=== PATIENT | female | born 1955 | race Caucasian/White ===

== ENCOUNTER → 2018-02-10 | Outpatient (CLI) | payer OTHER ==
[~2018-02-10] MED LIST: CARAFATE1 G1; PHENERGAN25 M2; SKELAXIN800 M1; Z.0.CYMBALTA30 MG; Z.0.LAMICTAL100 MG; Z.0.RESTORIL15 MG; Z.0.XANAX0.5 MG; Z.0.ZEGERID 20 MG1 E
--- NOTE | 2018-02-10 19:04 | Diagnostic Imaging Report ---
Solid-phase gastric emptying study Reason for examination: 62 F with RUQ abdominal pain The protocol used for this study is based on the Consensus Recommendations for Gastric Scintigraphy by the [place] [employer] Society and the Society of Nuclear Medicine. Clinical information: The patient is not diabetic. The patient had cholecystectomy in 1981 and stomach svetlana in 1991. Stomach svetlana were removed in 2015. The patient is not on any medications expected to affect gastric motility. The patient has been fasting for at least 6 hours prior to this exam. Radiopharmaceutical: Tc-99m sulfur colloid 1 mCi Report: The radiopharmaceutical was added to 1/2 cup egg whites that were then prepared and served with 2 pieces of white bread toasted, 30 grams of jam and 4 ounces of water. The patient took 85% of the meal orally. Images were obtained of the abdomen in the anterior and posterior projections at 10 minutes post the meal and at 1, 2, 3, and 4 hours. Uptake was determined from the geometric mean of the anterior and posterior counts and the counts were corrected for decay of the radiolabel. The percent gastric retention of the labeled meal at: 1 hour was 54% (normal 30-90%) 2 hours was 45% (normal <60%) 3 hours was 27% (normal <30%) 4 hours was 7% (normal <10%) Impression: Normal gastric emptying pattern. The findings do not support the clinical diagnosis of gastroparesis. Signed by: Dr. Ani Gauthier M.D. on 02/10/2018 7:01 PM
== END ==
LOC: NM 08:23
PROVIDERS: ATTEND Internal Medicine Gastroenterology
DX: R10.13 Epigastric pain (principal); R10.11 Right upper quadrant pain; K21.9 Gastro-esophageal reflux disease without esophagitis
CPT/HCPCS: 78264; A9541

== ENCOUNTER → 2018-11-02 | Outpatient (CLI) | payer BC ==
--- NOTE | 2018-11-02 12:34 | Diagnostic Imaging Report ---
EXAMINATION: CHEST 2 VIEWS INDICATION: Cough COMPARISON: None FINDINGS: LINES/TUBES:None LUNGS:The lungs are well-inflated. No focal consolidation or pulmonary edema. PLEURA:No pleural effusion or pneumothorax. MEDIASTINUM:The cardiomediastinal silhouette appears normal in size and shape. Atherosclerotic calcifications of the thoracic aorta. BONES/SOFT TISSUES:No acute osseous injury. ABDOMEN:No free air under the diaphragm. IMPRESSION: No focal pneumonia or pulmonary edema. Signed by: Clifton Sanchez MD on 11/02/2018 12:31 PM
--- NOTE | 2018-11-02 12:40 | Diagnostic Imaging Report ---
EXAMINATION: SINUSES (PARANASAL)MIN 3VIEWS INDICATION: Congestion COMPARISON: None FINDINGS: Multiple views of the sinuses demonstrate well aerated paranasal sinuses and mastoid air cells without air-fluid levels. No acute osseous injury. Metallic dental fillings noted. Anatomic alignment of the partially visualized cervical spine. Prevertebral soft tissues are normal in thickness. IMPRESSION: Well aerated sinuses. Signed by: Clifton Sanchez MD on 11/02/2018 12:37 PM
== END ==
LOC: RAD 10:15
PROVIDERS: ATTEND Internal Medicine
DX: R05 Cough (principal); R09.89 Other specified symptoms and signs involving the circulatory and respiratory systems
CPT/HCPCS: 70220; 71046

== ENCOUNTER 2019-11-07 15:11 | Emergency (ER) | payer BC ==
[~2019-11-07] VITALS: Ht 172.7 cm; Wt 102.1 kg
--- NOTE | 2019-11-07 15:34 | Emergency Department Note ---
History of Present Illnes History of Present Illness Chief Complaint: General Medicine Complaints History of Present Illness This is a 64 year old female PATIENT IN FROM HOME WITH COMPLAINTS OF RIGHT SIDED LOWER DENTAL PAIN X 3 DAYS, STATES TODAY SHE WOKE UP WITH SWELLING TO THE RIGHT SIDE OF HER FACE. PATIENT ALERT AND ORIENTED, RESP EVEN AND NONLABORED, APPEARS IN NO DISTRESS, RATES PAIN 2/10. Historian: Patient Arrival Mode: Car Database Programmer Analyst Required: No Onset (how long ago): day(s) (3) Location: RIGHT MANDIBULAR SWELLING Quality: SWELLING Radiation: Reports non-radiation Severity: moderate Onset quality: gradual Timing of current episode: constant Progression: worsening Chronicity: new Context: Denies recent illness Relieving factors: none Exacerbating factors: none Associated symptoms: Reports denies other symptoms Treatments prior to arrival: none Past Medical/Family History Physician Review I have reviewed the patient's past medical and family history. Any updates have been documented here. Past Medical History Recent Fever: No Clinical Suspicion of Infectio: Yes New/Unexplained Change in Ment: No Past Medical History: Hypothyroidism, CAD, GERD, Hyperlipedemia Other Medical History: HIGH CHOLESTEROL Past Surgical History: Cholecysctectomy, Hysterectomy, , Bariatric Surgery Other Surgery: GASTRIC BYPASS, PLASTIC SX, X 3, COLON POLYPS FOOT SURGERY Social History Smoking Cessation: Former smoker Counseling Performed: No Alcohol Use: Social Any Illegal Drug Use: No TB Exposure/Symptoms: No Physically hurt or threatened: No Other Last Tetanus: NO Any Pre-Existing Lines (PICC,: No Review of Systems Review of Systems Constitutional: Reports no symptoms EENTM: Reports as per HPI Cardiovascular: Reports no symptoms Respiratory: Reports no symptoms Gastrointestinal: Reports no symptoms Genitourinary: Reports no symptoms Musculoskeletal: Reports no symptoms Integumentary: Reports no symptoms Neurological: Reports no symptoms Psychological: Reports no symptoms Endocrine: Reports no symptoms Hematological/Lymphatic: Reports no symptoms Physical Exam Related Data Allergies: Coded Allergies: aspirin (Verified Adverse Reaction, Unknown, UPSET STOMACH, 05/30/16) Triage Vital Signs Vital Signs Date Time Temp Pulse Resp B/P (MAP) Pulse Ox O2 Delivery O2 Flow Rate FiO2 11/07/19 15:14 96.6 87 20 158/94 95 Room Air Vital signs reviewed: Yes Physical Exam CONSTITUTIONAL Constitutional: Present well-developed, Present well-nourished HENT HENT: Present normocephalic, Present atraumatic, Present oropharynx normal, Present other (TOOTH #29 VERY TENDER TO TAP, NO SWELLING OF GUMS, POSITIVE SWELLING OF RIGHT MANDIBLE BUT NOT UNDER ANGLE OF JAW) HENT L/R: Present left TM normal, Present right TM normal, Present left ext ear normal, Present right ext ear normal EYES Eyes: Reports PERRL, Reports conjunctivae normal NECK Neck: Present ROM normal PULMONARY Pulmonary: Present effort normal, Present breath sounds normal CARDIOVASCULAR Cardiovascular: Present regular rhythm, Present heart sounds normal, Present capillary refill normal, Present normal rate GASTROINTESTINAL Abdominal: Present soft, Present nontender, Present bowel sounds normal GENITOURINARY Genitourinary: Present exam deferred SKIN Skin: Present warm, Present dry MUSCULOSKELETAL Musculoskeletal: Present ROM normal NEUROLOGICAL Neurological: Present alert, Present oriented x 3, Present no gross motor or sensory deficits; Absent cranial nerve deficit PSYCHOLOGICAL Psychological: Present mood/affect normal, Present judgement normal Assessment & Plan Medical Decision Making MDM DENTAL INFECTION WITH RIGHT MANDIBULAR SWELLING - HOME WITH PO ABX'S AND PAIN CONTROL Reassessment Reassessment DC HOME WITH CLINDA 300 Q6H X 10D, TYL #3 (#15), OTC IBUPROFEN/TYLENOL DIRECTED Assessment & Plan Final Impression: (1) Dental infection (2) Mandibular swelling Depart Disposition: HOME, SELF-CARE Last Vital Signs Date Time Temp Pulse Resp B/P (MAP) Pulse Ox O2 Delivery O2 Flow Rate FiO2 11/07/19 15:14 96.6 87 20 158/94 95 Room Air Home Meds Reported Medications Duloxetine Hcl (Cymbalta) 30 Mg Capsule.dr, QD 05/11/11 Promethazine Hcl (Phenergan) 25 Mg Supp.rect, PRN 05/11/11 Lamotrigine (Lamictal) 100 Mg Tablet, BID 05/11/11 Alprazolam (Xanax) 0.5 Mg Tablet, BID PRN 05/11/11 Sucralfate (Carafate) 1 Gm Tablet, QD 05/11/11 Omeprazole/Sodium Bicarbonate (Zegerid 20 Mg Capsule) 1 Each Capsule, QD 05/11/11 Metaxalone (SKELAXIN) 800 Mg Tablet, TID 05/11/11 Temazepam (Restoril) 15 Mg Capsule, HS 05/11/11 GOLDIE TOVAR MD Nov 07, 2019 15:34
--- OUTSIDE RECORDS SUMMARY | 2019-11-07 15:38 | XMS REPORT | Continuity of Care Document ---
Author Author [facility] t Organization [facility] Address [address] [place] [address] Phone Unavailable Care Team Providers Care Regional Hr Manager Name Role Phone Joan Kramer MD PCP Joan Kramer MD Attphys VINICIO MCKEON Attphys Unavailable SPENSER YOUNG Attphys Unavailable Payers Payer Name Policy Type Policy Number Effective Date Expiration Date S john BCBSBCBS CHOICE PPO/[employer] EMPL PPOxxxxxxxxxxxx2018-Pre sentPPO xxxxxxxxxxxx 2018 00:00:00 Dionte Bansal Problems This patient has no known problems. Allergies, Adverse Reactions, Alerts Allergy Name Allergy Type Status Severity Reaction(s) Onset Date Inacti ve Date Treating Clinician Comments Source No Known Allergies DA Active U 2011-03-07 00:00:00 [facility] Social History Social Habit Start Date Stop Date Quantity Comments Source Sex Assigned At [facility] [employer] Medications This patient has no known medications. Procedures Procedure Date / Time Performed Performing Clinician Sourc e CT CHEST WO CONTRAST 2019 12:45:27 Beni Kramer Plan of Care Planned Activity Planned Date Details Comments Source Future Scheduled Test 2019-11-25 00:00:00 INFLUENZA VACCINE [code = INFLUENZA VACCINE] Dionte Bansal Future Scheduled Test 2005-06-27 00:00:00 BREAST CANCER SCRE ENING [code = BREAST CANCER SCREENING] Dionte Bansal Future Scheduled Test 2005-06-27 00:00:00 COLONOSCOPY SCREEN ING [code = COLONOSCOPY SCREENING] Dionte Bansal Future Scheduled Test 2005-06-27 00:00:00 SHINGLES VACCINES (#1) [code = SHINGLES VACCINES (#1)] Dionte Bansal Future Scheduled Test 1976-06-27 00:00:00 Screening for hugo gnant neoplasm of cervix (procedure) [code = 414489026] Dionte Agrawal t Encounters Start Date/Time End Date/Time Encounter Type Admission Type Attendi [facility] Facility Care Department Encounter ID Source 2019 00:00:00 2019 00:00:00 Outpatient [facility] [id number] Dionte Bansal Results Test Description Test Time Test Comments Results Result Comments Source CT Chest Wo Contrast 2019 13:12:59 Hm Inte rface, Radiology Results 2019 1:16 PM CDTEXAMINATION: CT CHEST WO CONTRASTCLINICAL HISTORY: J43.2 Centrilobular emphysema, Centrilobular emphysemaTECHNIQUE: Axial images of the chest were obtained without intravenous contrast. The lack of intravenous contrast reduces the sensitivity of the exam and evaluating vasculature. CT imaging was performed with iterative reconstruction technique and/or automated exposure control to reduce radiation dose.COMPARISON: NoneFINDINGS:Lungs and airways: Mild centrilobular emphysema is present. There is very subtle interlobular septal thickening and bronchial wall thickening as well. Ill-defined nodularity is present in the posterior basilar segment of the right lower lobe measuring approximately 1 cm. Pleura: No pleural effusion or pneumothorax.Mediastinum and lymph nodes: There are a few prominent but subcentimeter mediastinal lymph nodes which are favored to be reactive. The thyroid gland is diminutive, suggestive of hypothyroidism or prior thyroiditis.Cardiovascular: Moderate coronary artery and additional scattered vascular calcifications are present. The left ventricle is upper limits of normal in size but suboptimally assessed on non-ECG synchronized noncontrast CT.Upper abdomen: Calcified splenic granulomas are present. Status post gastric restrictive surgery.Musculoskeletal: There is an age-indeterminate, favor chronic, superior endplate deformity of T11. Spondylosis involves the visualized spine.IMPRESSION:1.Mild centrilobular emphysema.2.Very subtle interlobular septal and bronchial wall thickening could represent trace pulmonary edema.3.Ill-defined nodularity in the posterior basilar segment of the right lower lobe is favored represent atelectasis. A follow-up chest CT could be performed in 3-6 months to ensure resolution.4.Moderate coronary artery calcifications are present, and the left ventricle appears upper limits of normal in size but is suboptimally assessed on non-ECG synchronized, noncontrast enhanced CT.[id number] [facility] SINUSES (PARANASAL)MIN 3VIEWS 2018-11-02 12:35:00 [facility] [address] [address] Patient Name: GAURAV RAYMOND MR #: [id number] : 1955 Age/Sex: 63/F Req #: [id number] Adm Physician: Ordered by: VINICIO MCKEON MD Report #: [id number] Location: [facility] Room/Bed: Procedure: [id number] DX/SINUSES (PARANASAL)MIN 3VIEWS Exam Date: 11/02/18 Exam Time: 1140 REPORT STATUS: Signed EXAMINATION: SINUSES (PARANASAL)MIN 3VIEWS INDICATION: Congestion COMPARISON: None FINDINGS: Multiple views of the sinuses demonstrate well aerated paranasal sinuses and mastoid air cells without air-fluid levels. No acute osseous injury. Metallic dental fillings noted. Anatomic alignment of the partially visualized cervical spine. Prevertebral soft tissues are normal in thickness. IMPRESSION: Well aerated sinuses. Signed by: Yoan Gray MD on 11/02/2018 12:37 PM Dictated By: YOAN GRAY MD 1237 Transcribed By: STEPHANI on 11/02/18 1237 COPY TO: VINICIO MCKEON MD CHEST 2 VIEWS 2018-11-02 12:30:[address] [address] Patient Name: GAURAV RAYMOND MR #: [id number] : 1955 Age/Sex: 63/F Req #: [id number] Adm Physician: Ordered by: VINICIO MCKEON MD Report #: [id number] Location: [facility] Room/Bed: Procedure: [id number] DX/CHEST 2 VIEWS Exam Date: 11/02/18 Exam Time: 1140 REPORT STATUS: Signed EXAMINATION: CHEST 2 VIEWS INDICATION: Cough COMPARISON: None FINDINGS: LINES/TUBES:None LUNGS:The lungs are well-inflated. No focal consolidation or pulmonary edema. PLEURA:No pleural effusion or pneumothorax. MEDIASTINUM:The cardiomediastinal silhouette appears normal in size and shape. Atherosclerotic calcifications of the thoracic aorta. BONES/SOFT TISSUES:No acute osseous injury. ABDOMEN:No free air under the diaphragm. IMPRESSION: No focal pneumonia or pulmonary edema. Signed by: Yoan Gray MD on 11/02/2018 12:31 PM Dictated By: YOAN GRAY MD 1231 Transcribed By: STEPHANI on 11/02/18 1231 COPY TO: VINICIO MCKEON MD GASTRIC EMPTYING 2018-02-10 18:57:00 [address] [place] [address] Patient Name: GAURAV RAYMOND MR #: [id number] : 1955 Age/Sex: 62/F Req #: [id number] [facility] Physician: Ordered by: SPENSER YOUNG MD Report #: [id number] Location: MD Room/Bed: Procedure: [id number] NM/GASTRIC EMPTYING Exam Date: Exam Time: REPORT STATUS: Signed Solid-phase gastric emptying study Reason for examination: 62 F with RUQ abdominal pain The protocol used for this study is based on the Consensus Recommendations for Gastric Scintigraphy by the [place] [employer]ility Society and the Society of Nuclear Medicine. Clinical information: The patient is not diabetic. The patient had cholecystectomy in 1981 and stomach svetlana in 1991. Stomach svetlana were removed in 2015. The patient is not on any medications expected to affect gastric motility. The patient has been fasting for at least 6 hours prior to this exam. Radiopharmaceutical: Tc-99m sulfur colloid 1 mCi Report: The radiopharmaceutical was added to 1/2 cup egg whites that were then prepared and served with 2 pieces of white bread toasted, 30 grams of jam and 4 ounces of water. The patient took 85% of the meal orally. Images were obtained of the abdomen in the anterior and posterior projections at 10 minutes post the meal and at 1, 2, 3, and 4 hours. Uptake was determined from the geometr ic mean of the anterior and posterior counts and the counts were corrected for decay of the radiolabel. The percent gastric retention of the labeled meal at: 1 hour was 54% (normal 30-90%) 2 hours was 45% (normal <60%) 3 hours was 27% (normal <30%) 4 hours was 7% (normal <10%) Impression: Normal gastric emptying pattern. The findings do not support the clinical diagnosis of gastroparesis. Signed by: Dr. Jewell Gauthier M.D. on 02/10/2018 7:01 PM Dictated By: JEWELL GAUTHIER MD 00 Transcribed By: STEPHANI on 02/10/181900 COPY TO: SPENSER YOUNG MD
--- OUTSIDE RECORDS SUMMARY | 2019-11-07 15:38 | XMS REPORT | Clinical Summary ---
Author Author [facility] Address Unknown Phone Unavailable Care Team Providers Care Banquet Supervisor Name Role Phone Beni Kramer MD PCP Allergies Not on File Medications Not on file Active Problems Not on file Encounters Care Team Description Date Type Specialty Beni Kramer MD Centrilobular emphysema (HCC) 2019 Hospital Radiology Encounter 2019 Travel 06/21/2019 Travel Beni Kramer MD Centrilobular emphysema (HCC) (Primary D x) 06/21/2019 Transcribe Access Orders after 11/06/2018 Social History Date Tobacco Use Types Packs/Day Years Used Never Assessed Sex Assigned at Date Recorded Not on file Industry Job Start Date Occupation Not on file Not on file Not on file Travel End Travel History Travel Start No recent travel history available. Last Filed Vital Signs Not on file Plan of Treatment Health Maintenance Due Date Last Done Comments CERVICAL CANCER SCREENING 06/27/1976 BREAST CANCER SCREENING 06/27/2005 COLONOSCOPY SCREENING 06/27/2005 SHINGLES VACCINES (#1) 06/27/2005 INFLUENZA VACCINE 11/25/2019 Procedures Comments Procedure Name Priority Date/Time Associated Diag nosis CT CHEST WO CONTRAST Routine 2019 Centrilob ular emphysema 12:45 PM CDT (HCC) after 11/06/2018 Results * CT Chest Wo Contrast (2019 12:45 PM CDT) Specimen Narrative Performed At EXAMINATION: CT CHEST WO CONTRAST [facility] CLINICAL HISTORY: J43.2 Centrilobular e mphysema, Centrilobular emphysema TECHNIQUE: Axial images of the chest were obtained without intravenous contrast. The lack of intravenous contr ast reduces the sensitivity of the exam and evaluating vasculature. CT imaging was performed with iterative reconstruction technique and/or automated exposure control to reduce ra diation dose. COMPARISON: None FINDINGS: Lungs and airways: Mild centrilobular e mphysema is present. There is very subtle interlobular septal thickening and bron chial wall thickening as well. Ill-defined nodularity is present in th e posterior basilar segment of the right lower lobe measuring approximately 1 cm. Pleura: No pleural effusion or pneumoth orax. Mediastinum and lymph nodes: There are a few prominent but subcentimeter mediastinal lymph nodes which are favor ed to be reactive. The thyroid gland is diminutive, suggestive of hypothyroidis m or prior thyroiditis. Cardiovascular: Moderate coronary arter y and additional scattered vascular calcifications are present. The left ve ntricle is upper limits of normal in size but suboptimally assessed on non-ECG sy nchronized noncontrast CT. Upper abdomen: Calcified splenic granul omas are present. Status post gastric restrictive surgery. Musculoskeletal: There is an age-indete rminate, favor chronic, superior endplate deformity of T11. Spondylosis involves the visualized spine. IMPRESSION: 1.Mild centrilobular emphysema. 2.Very subtle interlobular septal and b ronchial wall thickening could represent trace pulmonary edema. 3.Ill-defined nodularity in the posteri or basilar segment of the right lower lobe is favored represent atelectasis. A follow-up chest CT could be performed in 3-6 months to ensure resolution. 4.Moderate coronary artery calcificatio ns are present, and the left ventricle appears upper limits of normal in size but is suboptimally assessed on non-ECG synchronized, noncontrast enhanced CT. [id number] Procedure Note Hm Interface, Radiology Results Incoming - 2019 1:16 PM CDT EXAMINATION: CT CHEST WO CONTRAST CLINICAL HISTORY: J43.2 Centrilobular emphysema, Centrilobular emphysema TECHNIQUE: Axial images of the chest were obtained without intravenous contrast. The lack of intravenous contrast reduces the sensitivity of the exam and evaluating vasculature. CT imaging was performed with iterative reconstruction technique and/or automated exposure control to reduce radiation dose. COMPARISON: None FINDINGS: Lungs and airways: Mild centrilobular emphysema is present. There is very subtle interlobular septal thickening and bronchial wall thickening as well. Ill- defined nodularity is present in the posterior basilar segment of the right lower lobe measuring approximately 1 cm. Pleura: No pleural effusion or pneumothorax. Mediastinum and lymph nodes: There are a few prominent but subcentimeter mediastinal lymph nodes which are favored to be reactive. The thyroid gland is diminutive, suggestive of hypothyroidism or prior thyroiditis. Cardiovascular: Moderate coronary artery and additional scattered vascular calcifications are present. The left ventricle is upper limits of normal in size but suboptimally assessed on non-ECG synchronized noncontrast CT. Upper abdomen: Calcified splenic granulomas are present. Status post gastric restrictive surgery. Musculoskeletal: There is an age-indeterminate, favor chronic, superior endplate deformity of T11. Spondylosis involves the visualized spine. IMPRESSION: 1.Mild centrilobular emphysema. 2.Very subtle interlobular septal and br onchial wall thickening could represent trace pulmonary edema. 3.Ill-defined nodularity in the posterio r basilar segment of the right lower lobe is favored represent atelectasis. A follow-up chest CT could be performed in 3-6 months to ensure resolution. 4.Moderate coronary artery calcification s are present, and the left ventricle appears upper limits of normal in size but is suboptimally assessed on non-ECG synchronized, noncontrast enhanced CT. [id number] Performing Organization Address [facility]/State[facility] one Number [facility] [address] [place] [address] after 11/06/2018 Insurance Type Payer Benefit Subscriber ID Effective Phone Address Plan / Dates Group PPO BCBS BCBS xxxxxxxxxxxx [id number] CHOICE resent PPO/ILIANA TOTH PPO Advance Directives For more information, please contact: [phone] Patient Restoration Officer Explanation Type Date Recorded Advance Directives, Living Will and Medical Power of Lining Presser
== END 2019-11-07 15:28 | disposition home or self-care (01) ==
LOC: ER 15:19
DX: K08.89 Other specified disorders of teeth and supporting structures (principal); K04.7 Periapical abscess without sinus; M27.2 Inflammatory conditions of jaws; E78.5 Hyperlipidemia, unspecified; I25.10 Atherosclerotic heart disease of native coronary artery without angina pectoris; E03.9 Hypothyroidism, unspecified; K21.9 Gastro-esophageal reflux disease without esophagitis; Z98.84 Bariatric surgery status
CPT/HCPCS: 99283

== ENCOUNTER 2019-12-17 14:10 | Emergency (ER) | payer BC ==
[~2019-12-17] VITALS: Ht 172.7 cm; Wt 102.1 kg
[2019-12-17 14:42] LABS: BASOPHILS # (AUTO) 0.1 (0.0-0.1); BASOPHILS % 0.8 % (0.0-1.0); EOSINOPHILS # (AUTO) 0.2 (0.0-0.4); EOSINOPHILS % 2.2 % (0.0-6.0); HEMATOCRIT 44.1 % (34.2-44.1); LYMPHOCYTES # (AUTO) 1.9 (1.0-3.2); LYMPHOCYTES % 23.3 % (18.0-39.1); MEAN CORPUSCULAR HEMOGLOBIN 29.3 pg (28-32); MEAN CORPUSCULAR HGB CONC 31.7 g/dL (31-35); MEAN CORPUSCULAR VOLUME 92.3 fL (81-99); MONOCYTES # (AUTO) 0.8 (0.2-0.8); MONOCYTES % 9.3 % (4.4-11.3); NEUTROPHILS # (AUTO) 5.3 (2.1-6.9); PLATELET COUNT 330 x10e3/uL (140-360); RED BLOOD COUNT 4.78 x10e6/uL (3.6-5.1); RED CELL DISTRIBUTION WIDTH 13.4 % (11.7-14.4)
[2019-12-17 15:02] LABS: ALANINE AMINOTRANSFERASE 24 IU/L (0-55); ALBUMIN/GLOBULIN RATIO 1.1 (0.8-2.0); ALKALINE PHOSPHATASE 65 IU/L (40-150); ANION GAP 16.4 mmol/L (8-16); BLOOD UREA NITROGEN 11 mg/dL (7-26); BUN/CREATININE RATIO 13 (6-25); CALCIUM 9.5 mg/dL (8.4-10.2); CARBON DIOXIDE 25 mmol/L (22-29); CHLORIDE 104 mmol/L (98-107); CREATININE, SERUM 0.83 mg/dL (0.57-1.11); EST GLOMERULAR FILTRATION RATE > 60 ML/MIN (60-); GLUCOSE 91 mg/dL (74-118); POTASSIUM 4.4 mmol/L (3.5-5.1); SODIUM 141 mmol/L (136-145)
== END 2019-12-17 17:11 | disposition home or self-care (01) ==
LOC: ER 15:00
DX: R61 Generalized hyperhidrosis (principal); E16.2 Hypoglycemia, unspecified; E78.5 Hyperlipidemia, unspecified; K21.9 Gastro-esophageal reflux disease without esophagitis; I25.10 Atherosclerotic heart disease of native coronary artery without angina pectoris; F41.9 Anxiety disorder, unspecified; Z98.84 Bariatric surgery status
CPT/HCPCS: 36415; 80053; 85025; 99283

== ENCOUNTER 2020-09-13 17:17 | Emergency (ER) | payer MEDICARE, OTHER ==
[~2020-09-13] VITALS: Ht 172.7 cm; Wt 102.1 kg
[2020-09-13] MEDS ORDERED: HYDROCODONE/APAP 10MG-325MG TAB PO ONE (18:00)
[2020-09-13 20:12] VITALS: BP 148/83
== END 2020-09-13 20:19 | disposition home or self-care (01) ==
LOC: ER 18:07
DX: M25.562 Pain in left knee (principal); M25.561 Pain in right knee; M25.462 Effusion, left knee; M25.461 Effusion, right knee; S93.402A Sprain of unspecified ligament of left ankle, initial encounter; W01.0XXA Fall on same level from slipping, tripping and stumbling without subsequent striking against object, initial encounter; Y93.01 Activity, walking, marching and hiking; Y92.008 Other place in unspecified non-institutional (private) residence as the place of occurrence of the external cause; E78.5 Hyperlipidemia, unspecified; I25.10 Atherosclerotic heart disease of native coronary artery without angina pectoris; E03.9 Hypothyroidism, unspecified; F41.9 Anxiety disorder, unspecified; Z98.84 Bariatric surgery status
CPT/HCPCS: 99283

== ENCOUNTER 2020-11-15 14:27 | Inpatient (IN) | payer MEDICARE, OTHER ==
[~2020-11-15] VITALS: Ht 172.7 cm; Wt 117.5 kg
[2020-11-15] MEDS ORDERED: CEFTRIAXONE 1 GM VIAL IM ONE (14:45)
[2020-11-15] MEDS ORDERED: DEXAMETHASONE 10MG/ML PF INJ IV ONE (14:45)
[2020-11-15 14:58] LABS: BASOPHILS % 0.2 % (0.0-1.0); HEMATOCRIT 44.7 % (34.2-44.1); HEMOGLOBIN 14.2 g/dL (12.0-16.0); LYMPHOCYTES # (AUTO) 0.9 (1.0-3.2); MEAN CORPUSCULAR HEMOGLOBIN 27.8 pg (28-32); MEAN CORPUSCULAR HGB CONC 31.8 g/dL (31-35); MEAN CORPUSCULAR VOLUME 87.6 fL (81-99); MONOCYTES # (AUTO) 0.7 (0.2-0.8); MONOCYTES % 12.2 % (4.4-11.3); NEUTROPHILS # (AUTO) 3.8 (2.1-6.9); PLATELET COUNT 257 x10e3/uL (140-360); RED CELL DISTRIBUTION WIDTH 13.5 % (11.7-14.4)
[2020-11-15 15:09] LABS: ALBUMIN 3.5 g/dL (3.5-5.0); ALBUMIN/GLOBULIN RATIO 0.8 (0.8-2.0); ANION GAP 18.9 mmol/L (8-16); CALCIUM 8.8 mg/dL (8.4-10.2); CREATININE, SERUM 0.87 mg/dL (0.57-1.11)
[2020-11-15 15:12] LABS: POTASSIUM 2.9 mmol/L (3.5-5.1)
[2020-11-15] MEDS ORDERED: DEXAMETHASONE SOD PHOS 10 MG/1 ML VIAL IV ONE (15:30)
[2020-11-15] MEDS ORDERED: POTASSIUM CHLORIDE 10MEQ EA PO ONE (15:30)
[2020-11-15 15:33] LABS: CREATINE KINASE MB 0.9 ng/mL (0-5.0)
[2020-11-15] MEDS ORDERED: CASIRIVIMAB/IMDEVIMAB 10 ML in SODIUM CHLORIDE 0.9% 100 ML IV ONE (17:30)
[2020-11-15 20:41] LABS: INR 0.88; PROTHROMBIN TIME 12.1 seconds (11.9-14.5)
[2020-11-15 20:42] LABS: PARTIAL THROMBOPLASTIN TIME 29.2 seconds (23.8-35.5)
[2020-11-15] MEDS: ENOXAPARIN 30 MG/0.3 ML SYR SC SCH (21:02)
[2020-11-15 23:22] VITALS: BP 111/50
[2020-11-15 23:30] VITALS: BP 111/50
[2020-11-15 23:59] VITALS: BP 111/50
[2020-11-16] VITALS (25 sets, daily range): BP systolic 91–144; BP diastolic 45–84
[2020-11-16 05:24] LABS: HEMOGLOBIN 12.9 g/dL (12.0-16.0); LYMPHOCYTES # (AUTO) 0.4 (1.0-3.2); LYMPHOCYTES % 12.4 % (18.0-39.1); MEAN CORPUSCULAR HEMOGLOBIN 27.6 pg (28-32); MEAN CORPUSCULAR HGB CONC 33.1 g/dL (31-35); MEAN CORPUSCULAR VOLUME 83.5 fL (81-99); MONOCYTES # (AUTO) 0.4 (0.2-0.8); MONOCYTES % 10.9 % (4.4-11.3); NEUTROPHILS # (AUTO) 2.5 (2.1-6.9); NEUTROPHILS % 76.1 % (38.7-80.0); PLATELET COUNT 251 x10e3/uL (140-360); RED BLOOD COUNT 4.67 x10e6/uL (3.6-5.1); RED CELL DISTRIBUTION WIDTH 13.3 % (11.7-14.4)
[2020-11-16 06:10] LABS: ALBUMIN 2.9 g/dL (3.5-5.0); ALBUMIN/GLOBULIN RATIO 0.7 (0.8-2.0); ANION GAP 14.6 mmol/L (8-16); CALCIUM 8.5 mg/dL (8.4-10.2); CREATININE, SERUM 0.69 mg/dL (0.57-1.11); POTASSIUM 3.6 mmol/L (3.5-5.1)
[2020-11-16 06:17] LABS: CREATINE KINASE MB 0.9 ng/mL (0-5.0)
[2020-11-16] MEDS: ENOXAPARIN 30 MG/0.3 ML SYR SC SCH ×2 (08:21→16:12)
[2020-11-16] MEDS: ASCORBIC ACID 500 MG TAB PO SCH ×2 (08:21→16:12)
[2020-11-16] MEDS: DEXAMETHASONE SOD PHOS 10 MG/1 ML VIAL IV SCH (08:21)
[2020-11-16] MEDS: ZINC SULFATE 50 MG CAP PO SCH (08:21)
[2020-11-16] MEDS ORDERED: HYDRALAZINE HCL 20 MG/ML VIAL IV PRN (08:45)
[2020-11-16] MEDS ORDERED: DIPHENHYDRAMINE HCL 25 MG CAP PO PRN (08:45)
[2020-11-16] MEDS ORDERED: POTASSIUM CHLORIDE 20 MEQ TAB CR PO PRN (08:45)
[2020-11-16] MEDS ORDERED: LIDOCAINE 4% PATCH TP PRN (08:45)
[2020-11-16] MEDS ORDERED: DOCUSATE SODIUM 100 MG CAP PO PRN (08:45)
[2020-11-16] MEDS ORDERED: BENZONATATE 100 MG CAP PO PRN (08:45)
[2020-11-16] MEDS ORDERED: CHLORASEPTIC SPRAY 177 ML BTL MM PRN (08:45)
[2020-11-16] MEDS ORDERED: ALBUTEROL/IPRATROPIUM 3 ML NEB NEB PRN (08:45)
[2020-11-16] MEDS ORDERED: ACETAMINOPHEN 325 MG TAB PO PRN (08:45)
[2020-11-16] MEDS ORDERED: SIMETHICONE 80 MG CHEW PO PRN (08:45)
[2020-11-16] MEDS ORDERED: DEXTROSE 50% SYRINGE 50 ML IV PRN (08:45)
[2020-11-16] MEDS ORDERED: REMDESIVIR 200MG 200 MG IV SCH (09:00)
[2020-11-16] MEDS ORDERED: METAXALONE 800 MG TAB PO SCH (09:00)
[2020-11-16] MEDS ORDERED: LAMOTRIGINE 100 MG TAB PO SCH (09:00)
[2020-11-16] MEDS: DULOXETINE HCL 30 MG DELAYED RELEASE PO SCH (09:46)
[2020-11-16] MEDS: SUCRALFATE 1 GM TAB PO SCH (09:46)
[2020-11-16] MEDS ORDERED: SODIUM CHLORIDE 0.9% 50ML 50 ML ONE (11:10)
[2020-11-16] MEDS ORDERED: IOPAMIDOL 370 MG/ML 200 ML INFUS..BTL INJ ONE (11:10)
[2020-11-16] MEDS ORDERED: METFORMIN HCL500 M2 PO (11:47)
[2020-11-16] MEDS ORDERED: CRESTOR10 MG PO (11:47)
[2020-11-16] MEDS ORDERED: EFFIENT10 MG PO (11:47)
[2020-11-16] MEDS ORDERED: VENLAFAXINE HCL75 M2 PO (11:47)
[2020-11-16] MEDS ORDERED: LEVOTHYROXINE75 MCG PO (11:47)
[2020-11-16] MEDS ORDERED: QUETIAPINE FUMA25 MG PO (11:47)
[2020-11-16] MEDS ORDERED: METAXALONE 800 MG TAB PO PRN (12:00)
[2020-11-16] MEDS: BARICITINIB 2 MG TABLET PO SCH (13:03)
[2020-11-16] MEDS: QUETIAPINE FUMARATE 25 MG TAB PO SCH (20:12)
[2020-11-16] MEDS: ONDANSETRON HCL INJ 2MG/ML 2ML 2 MG/ML VIAL IV PRN (20:13)
[2020-11-16] MEDS ORDERED: MELATONIN 5 MG TABLET PO PRN (21:00)
[2020-11-17] VITALS (25 sets, daily range): BP systolic 72–142; BP diastolic 40–99
[2020-11-17] MEDS: LEVOTHYROXINE SODIUM 75 MCG TAB PO SCH (06:21)
[2020-11-17 06:38] LABS: ALBUMIN 2.8 g/dL (3.5-5.0); ALBUMIN/GLOBULIN RATIO 0.7 (0.8-2.0); CALCIUM 8.2 mg/dL (8.4-10.2); CREATININE, SERUM 0.67 mg/dL (0.57-1.11)
[2020-11-17 06:55] LABS: BASOPHILS % 0.2 % (0.0-1.0); HEMATOCRIT 39.5 % (34.2-44.1); HEMOGLOBIN 12.5 g/dL (12.0-16.0); LYMPHOCYTES # (AUTO) 0.8 (1.0-3.2); LYMPHOCYTES % 15.8 % (18.0-39.1); MEAN CORPUSCULAR HEMOGLOBIN 27.7 pg (28-32); MEAN CORPUSCULAR HGB CONC 31.6 g/dL (31-35); MEAN CORPUSCULAR VOLUME 87.4 fL (81-99); MONOCYTES # (AUTO) 0.5 (0.2-0.8); MONOCYTES % 9.2 % (4.4-11.3); NEUTROPHILS # (AUTO) 3.9 (2.1-6.9); NEUTROPHILS % 74.2 % (38.7-80.0); PLATELET COUNT 305 x10e3/uL (140-360); RED BLOOD COUNT 4.52 x10e6/uL (3.6-5.1); RED CELL DISTRIBUTION WIDTH 13.6 % (11.7-14.4)
[2020-11-17] MEDS ORDERED: SODIUM CHLORIDE 0.9% 100 ML ONE (07:59)
[2020-11-17] MEDS: PANTOPRAZOLE SOD 40 MG TABEC PO SCH (08:01)
[2020-11-17] MEDS: VENLAFAXINE HCL 75 MG CAPCR PO SCH (08:01)
[2020-11-17] MEDS: ZINC SULFATE 50 MG CAP PO SCH (08:01)
[2020-11-17] MEDS: DEXAMETHASONE SOD PHOS 10 MG/1 ML VIAL IV SCH (08:01)
[2020-11-17] MEDS: SUCRALFATE 1 GM TAB PO SCH (08:01)
[2020-11-17] MEDS: BARICITINIB 2 MG TABLET PO SCH (08:01)
[2020-11-17] MEDS: PRASUGREL 10 MG TAB PO SCH (08:01)
[2020-11-17] MEDS: ASCORBIC ACID 500 MG TAB PO SCH ×2 (08:01→16:46)
[2020-11-17] MEDS: DULOXETINE HCL 30 MG DELAYED RELEASE PO SCH (08:01)
[2020-11-17] MEDS: REMDESIVIR 100MG 100 MG IV SCH (08:01)
[2020-11-17] MEDS: ENOXAPARIN 30 MG/0.3 ML SYR SC SCH ×2 (08:02→16:46)
[2020-11-17] MEDS: ALPRAZOLAM 0.5 MG TAB PO PRN (10:20)
[2020-11-17] MEDS: ONDANSETRON HCL INJ 2MG/ML 2ML 2 MG/ML VIAL IV PRN (19:51)
[2020-11-17] MEDS: DEXMEDETOMIDINE 400MCG/NS100ML 100 ML IV PRN (20:34)
[2020-11-17] MEDS: QUETIAPINE FUMARATE 25 MG TAB PO SCH (21:23)
[2020-11-17] MEDS: SIMVASTATIN 20 MG TAB PO SCH (21:23)
[2020-11-18] VITALS (24 sets, daily range): BP systolic 86–133; BP diastolic 38–84
[2020-11-18 05:29] LABS: HEMATOCRIT 38.9 % (34.2-44.1); HEMOGLOBIN 12.7 g/dL (12.0-16.0); LYMPHOCYTES # (AUTO) 0.7 (1.0-3.2); LYMPHOCYTES % 11.3 % (18.0-39.1); MEAN CORPUSCULAR HEMOGLOBIN 28.2 pg (28-32); MEAN CORPUSCULAR HGB CONC 32.6 g/dL (31-35); MEAN CORPUSCULAR VOLUME 86.3 fL (81-99); MONOCYTES # (AUTO) 0.3 (0.2-0.8); MONOCYTES % 5.5 % (4.4-11.3); NEUTROPHILS # (AUTO) 4.8 (2.1-6.9); NEUTROPHILS % 82.5 % (38.7-80.0); PLATELET COUNT 312 x10e3/uL (140-360); RED BLOOD COUNT 4.51 x10e6/uL (3.6-5.1); RED CELL DISTRIBUTION WIDTH 13.4 % (11.7-14.4)
[2020-11-18 05:56] LABS: ANION GAP 13.2 mmol/L (8-16); CALCIUM 8.3 mg/dL (8.4-10.2); CREATININE, SERUM 0.65 mg/dL (0.57-1.11); POTASSIUM 3.2 mmol/L (3.5-5.1)
[2020-11-18] MEDS: LEVOTHYROXINE SODIUM 75 MCG TAB PO SCH (06:28)
[2020-11-18] MEDS: REMDESIVIR 100MG 100 MG IV SCH (08:36)
[2020-11-18] MEDS: SUCRALFATE 1 GM TAB PO SCH (08:36)
[2020-11-18] MEDS: DEXAMETHASONE SOD PHOS 10 MG/1 ML VIAL IV SCH (08:36)
[2020-11-18] MEDS: PANTOPRAZOLE SOD 40 MG TABEC PO SCH (08:36)
[2020-11-18] MEDS: BARICITINIB 2 MG TABLET PO SCH (08:37)
[2020-11-18] MEDS: ZINC SULFATE 50 MG CAP PO SCH (08:37)
[2020-11-18] MEDS: ASCORBIC ACID 500 MG TAB PO SCH ×2 (08:37→17:37)
[2020-11-18] MEDS: VENLAFAXINE HCL 75 MG CAPCR PO SCH (08:37)
[2020-11-18] MEDS: PRASUGREL 10 MG TAB PO SCH (08:37)
[2020-11-18] MEDS: ENOXAPARIN 30 MG/0.3 ML SYR SC SCH ×2 (08:37→17:43)
[2020-11-18] MEDS: ONDANSETRON HCL INJ 2MG/ML 2ML 2 MG/ML VIAL IV PRN (10:53)
[2020-11-18] MEDS: DEXMEDETOMIDINE 400MCG/NS100ML 100 ML IV PRN ×2 (10:53→21:19)
[2020-11-18] MEDS: SIMVASTATIN 20 MG TAB PO SCH (20:44)
[2020-11-18] MEDS: QUETIAPINE FUMARATE 25 MG TAB PO SCH (20:44)
[2020-11-19] VITALS (19 sets, daily range): BP systolic 88–134; BP diastolic 53–78
[2020-11-19] MEDS: ALPRAZOLAM 0.5 MG TAB PO PRN ×2 (04:57→21:22)
[2020-11-19] MEDS: LEVOTHYROXINE SODIUM 75 MCG TAB PO SCH (05:58)
[2020-11-19 07:12] LABS: ALBUMIN 2.5 g/dL (3.5-5.0); ALBUMIN/GLOBULIN RATIO 0.6 (0.8-2.0); ANION GAP 16.8 mmol/L (8-16); CALCIUM 8.8 mg/dL (8.4-10.2); CREATININE, SERUM 0.6 mg/dL (0.57-1.11); POTASSIUM 3.8 mmol/L (3.5-5.1)
[2020-11-19] MEDS ORDERED: SODIUM CHLORIDE 0.9% 100 ML ONE (07:43)
[2020-11-19] MEDS: PRASUGREL 10 MG TAB PO SCH (08:46)
[2020-11-19] MEDS: REMDESIVIR 100MG 100 MG IV SCH (08:46)
[2020-11-19] MEDS: ASCORBIC ACID 500 MG TAB PO SCH ×2 (08:46→17:29)
[2020-11-19] MEDS: ZINC SULFATE 50 MG CAP PO SCH (08:46)
[2020-11-19] MEDS: VENLAFAXINE HCL 75 MG CAPCR PO SCH (08:46)
[2020-11-19] MEDS: PANTOPRAZOLE SOD 40 MG TABEC PO SCH (08:46)
[2020-11-19] MEDS: ENOXAPARIN 30 MG/0.3 ML SYR SC SCH ×2 (08:46→17:29)
[2020-11-19] MEDS: DEXAMETHASONE SOD PHOS 10 MG/1 ML VIAL IV SCH (08:46)
[2020-11-19] MEDS: SUCRALFATE 1 GM TAB PO SCH (08:46)
[2020-11-19] MEDS: DEXMEDETOMIDINE 400MCG/NS100ML 100 ML IV PRN (19:41)
[2020-11-19] MEDS ORDERED: PERIPHERAL TPN FORMULA 1 BAG IV SCH (20:00)
[2020-11-19] MEDS ORDERED: LORAZEPAM 0.5 MG TAB ONE (21:01)
[2020-11-19] MEDS: QUETIAPINE FUMARATE 25 MG TAB PO SCH (21:22)
[2020-11-19] MEDS: SIMVASTATIN 20 MG TAB PO SCH (21:22)
[2020-11-20] VITALS (27 sets, daily range): BP systolic 74–153; BP diastolic 51–104
[2020-11-20] MEDS: DEXMEDETOMIDINE 400MCG/NS100ML 100 ML IV PRN ×2 (02:40→08:44)
[2020-11-20 05:20] LABS: BASOPHILS % 0.2 % (0.0-1.0); HEMATOCRIT 38.5 % (34.2-44.1); HEMOGLOBIN 12.5 g/dL (12.0-16.0); LYMPHOCYTES # (AUTO) 0.6 (1.0-3.2); LYMPHOCYTES % 4.6 % (18.0-39.1); MEAN CORPUSCULAR HEMOGLOBIN 27.5 pg (28-32); MEAN CORPUSCULAR HGB CONC 32.5 g/dL (31-35); MEAN CORPUSCULAR VOLUME 84.8 fL (81-99); MONOCYTES # (AUTO) 0.5 (0.2-0.8); MONOCYTES % 3.8 % (4.4-11.3); NEUTROPHILS # (AUTO) 11.3 (2.1-6.9); NEUTROPHILS % 90.4 % (38.7-80.0); PLATELET COUNT 374 x10e3/uL (140-360); RED BLOOD COUNT 4.54 x10e6/uL (3.6-5.1); RED CELL DISTRIBUTION WIDTH 13.2 % (11.7-14.4)
[2020-11-20] MEDS: LEVOTHYROXINE SODIUM 75 MCG TAB PO SCH (05:33)
[2020-11-20 05:39] LABS: ALBUMIN 2.4 g/dL (3.5-5.0); ALBUMIN/GLOBULIN RATIO 0.6 (0.8-2.0); CALCIUM 8.5 mg/dL (8.4-10.2); CREATININE, SERUM 0.59 mg/dL (0.57-1.11); MAGNESIUM 2.1 MG/DL (1.3-2.1)
[2020-11-20] MEDS: PANTOPRAZOLE SOD 40 MG TABEC PO SCH (07:49)
[2020-11-20] MEDS: ALPRAZOLAM 0.5 MG TAB PO PRN (07:51)
[2020-11-20] MEDS ORDERED: SODIUM CHLORIDE 0.9% 100 ML ONE (07:56)
[2020-11-20] MEDS: DEXAMETHASONE SOD PHOS 10 MG/1 ML VIAL IV SCH (08:48)
[2020-11-20] MEDS: VENLAFAXINE HCL 75 MG CAPCR PO SCH (08:48)
[2020-11-20] MEDS: REMDESIVIR 100MG 100 MG IV SCH (08:48)
[2020-11-20] MEDS: SUCRALFATE 1 GM TAB PO SCH (08:48)
[2020-11-20] MEDS: PRASUGREL 10 MG TAB PO SCH (08:49)
[2020-11-20] MEDS: ASCORBIC ACID 500 MG TAB PO SCH ×2 (08:49→17:00)
[2020-11-20] MEDS: ENOXAPARIN 30 MG/0.3 ML SYR SC SCH ×2 (08:49→17:13)
[2020-11-20] MEDS: ZINC SULFATE 50 MG CAP PO SCH (08:49)
[2020-11-20] MEDS ORDERED: FUROSEMIDE INJ 10 MG/ML 4 ML VIAL IV ONE (10:45)
[2020-11-20] MEDS: FENTANYL 2000MCG/NS 250 250 ML IV SCH ×3 (10:57→23:42)
[2020-11-20] MEDS: MIDAZOLAM HCL 5MG/ML 10ML VIAL 100 ML IV PRN ×2 (10:58→15:07)
[2020-11-20] MEDS: ROCURONIUM 1250MG/NS 250 250 ML IV PRN ×2 (10:59→17:05)
[2020-11-20 12:09] LABS: ABG HCO3 23 mmol/L (22-26); ABG PCO2 57 mmHg (35-45); ABG PH 7.22 (7.35-7.45); ABG PO2 57 mmHg (80-105)
[2020-11-20 12:10] LABS: ABG TCO2 25
[2020-11-20] MEDS: NOREPINEPHRINE 8 MG/D5W 250 ML 250 ML IV SCH (15:15)
[2020-11-20] MEDS ORDERED: PERIPHERAL TPN FORMULA 1 BAG IV SCH (20:00)
[2020-11-20] MEDS: QUETIAPINE FUMARATE 25 MG TAB PO SCH (21:00)
[2020-11-20] MEDS: SIMVASTATIN 20 MG TAB PO SCH (21:16)
[2020-11-21] VITALS (26 sets, daily range): BP systolic 98–118; BP diastolic 59–71
[2020-11-21] MEDS: MIDAZOLAM HCL 5MG/ML 10ML VIAL 100 ML IV PRN ×5 (02:08→23:00)
[2020-11-21] MEDS: LEVOTHYROXINE SODIUM 75 MCG TAB PO SCH (05:55)
[2020-11-21 06:04] LABS: BASOPHILS % 0.2 % (0.0-1.0); HEMATOCRIT 39.9 % (34.2-44.1); HEMOGLOBIN 11.9 g/dL (12.0-16.0); LYMPHOCYTES # (AUTO) 0.6 (1.0-3.2); LYMPHOCYTES % 3.4 % (18.0-39.1); MEAN CORPUSCULAR HEMOGLOBIN 27.9 pg (28-32); MEAN CORPUSCULAR HGB CONC 29.8 g/dL (31-35); MEAN CORPUSCULAR VOLUME 93.7 fL (81-99); MONOCYTES # (AUTO) 0.7 (0.2-0.8); MONOCYTES % 4.1 % (4.4-11.3); NEUTROPHILS # (AUTO) 16.3 (2.1-6.9); NEUTROPHILS % 90.6 % (38.7-80.0); PLATELET COUNT 375 x10e3/uL (140-360); RED BLOOD COUNT 4.26 x10e6/uL (3.6-5.1)
[2020-11-21 06:34] LABS: ALBUMIN 1.9 g/dL (3.5-5.0); ALBUMIN/GLOBULIN RATIO 0.5 (0.8-2.0); ANION GAP 12.4 mmol/L (8-16); CALCIUM 7.8 mg/dL (8.4-10.2); CREATININE, SERUM 0.84 mg/dL (0.57-1.11); POTASSIUM 4.4 mmol/L (3.5-5.1)
[2020-11-21] MEDS: FENTANYL 2000MCG/NS 250 250 ML IV SCH ×3 (06:52→18:44)
[2020-11-21] MEDS: NOREPINEPHRINE 8 MG/D5W 250 ML 250 ML IV SCH (06:53)
[2020-11-21] MEDS ORDERED: SODIUM CHLORIDE 0.9% 100 ML ONE (07:52)
[2020-11-21] MEDS: PRASUGREL 10 MG TAB PO SCH (08:05)
[2020-11-21] MEDS: ZINC SULFATE 50 MG CAP PO SCH (08:05)
[2020-11-21] MEDS: ASCORBIC ACID 500 MG TAB PO SCH ×2 (08:05→17:43)
[2020-11-21] MEDS: DEXAMETHASONE SOD PHOS 10 MG/1 ML VIAL IV SCH (08:05)
[2020-11-21] MEDS: ENOXAPARIN 30 MG/0.3 ML SYR SC SCH ×2 (08:05→21:00)
[2020-11-21] MEDS: REMDESIVIR 100MG 100 MG IV SCH (08:06)
[2020-11-21 08:20] LABS: ABG HCO3 25 mmol/L (22-26); ABG PCO2 57 mmHg (35-45); ABG PH 7.24 (7.35-7.45); ABG PO2 108 mmHg (80-105); ABG TCO2 26
[2020-11-21] MEDS: Vancomycin IV 1 GM in SODIUM CHLORIDE 0.9% 250ML 250 ML IV SCH (13:00)
[2020-11-21] MEDS: MEROPENEM 1 GM in SODIUM CHLORIDE 0.9% 100 ML IV SCH ×2 (13:26→22:12)
[2020-11-21 15:38] LABS: ABG HCO3 24 mmol/L (22-26); ABG PCO2 54 mmHg (35-45); ABG PH 7.25 (7.35-7.45); ABG PO2 128 mmHg (80-105)
[2020-11-21 15:39] LABS: ABG TCO2 25
[2020-11-21] MEDS ORDERED: ETOMIDATE 2 MG/ML 10 ML INJ IV ONE (17:58)
[2020-11-21] MEDS ORDERED: VECURONIUM BROMIDE FOR INJ 20 MG VIAL ONE (17:58)
[2020-11-21] MEDS ORDERED: MIDAZOLAM HCL 2 MG/2 ML VIAL ONE (17:58)
[2020-11-21] MEDS ORDERED: WATER STERILE 10 ML VIAL ONE (17:58)
[2020-11-21] MEDS ORDERED: SUCCINYLCHOLINE CHLORIDE 20 MG/ML 10ML VIAL ONE (17:58)
[2020-11-21] MEDS ORDERED: DEXTROSE 50% SYRINGE 50 ML IV PRN (19:00)
[2020-11-21] MEDS: QUETIAPINE FUMARATE 25 MG TAB PO SCH (21:00)
[2020-11-21] MEDS: SIMVASTATIN 20 MG TAB PO SCH (21:00)
[2020-11-22] VITALS (25 sets, daily range): BP systolic 105–122; BP diastolic 57–68
[2020-11-22] MEDS: INSULIN LISPRO 100 UNIT/1 ML 3ML VIAL SQ SCH ×4 (00:07→18:49)
[2020-11-22] MEDS: Vancomycin IV 1 GM in SODIUM CHLORIDE 0.9% 250ML 250 ML IV SCH ×2 (00:08→13:00)
[2020-11-22] MEDS: NOREPINEPHRINE 8 MG/D5W 250 ML 250 ML IV SCH (00:30)
[2020-11-22] MEDS: FENTANYL 2000MCG/NS 250 250 ML IV SCH ×2 (04:40→11:00)
[2020-11-22] MEDS: MIDAZOLAM HCL 5MG/ML 10ML VIAL 100 ML IV PRN ×4 (04:40→21:00)
[2020-11-22] MEDS: MEROPENEM 1 GM in SODIUM CHLORIDE 0.9% 100 ML IV SCH ×3 (06:25→22:11)
[2020-11-22] MEDS: LEVOTHYROXINE SODIUM 75 MCG TAB PO SCH (06:25)
[2020-11-22 06:28] LABS: BASOPHILS # (AUTO) 0.1 (0.0-0.1); BASOPHILS % 0.3 % (0.0-1.0); HEMOGLOBIN 11.7 g/dL (12.0-16.0); LYMPHOCYTES # (AUTO) 0.4 (1.0-3.2); MEAN CORPUSCULAR HEMOGLOBIN 27.7 pg (28-32); MEAN CORPUSCULAR HGB CONC 29.3 g/dL (31-35); MEAN CORPUSCULAR VOLUME 94.6 fL (81-99); MONOCYTES # (AUTO) 0.7 (0.2-0.8); MONOCYTES % 3.4 % (4.4-11.3); NEUTROPHILS # (AUTO) 18.1 (2.1-6.9); NEUTROPHILS % 92.5 % (38.7-80.0); PLATELET COUNT 373 x10e3/uL (140-360); RED BLOOD COUNT 4.23 x10e6/uL (3.6-5.1); RED CELL DISTRIBUTION WIDTH 14.1 % (11.7-14.4)
[2020-11-22 06:43] LABS: ALBUMIN 1.6 g/dL (3.5-5.0); ALBUMIN/GLOBULIN RATIO 0.4 (0.8-2.0); ANION GAP 11.7 mmol/L (8-16); CREATININE, SERUM 0.79 mg/dL (0.57-1.11); POTASSIUM 4.7 mmol/L (3.5-5.1)
[2020-11-22] MEDS: PRASUGREL 10 MG TAB PO SCH (08:03)
[2020-11-22] MEDS: ASCORBIC ACID 500 MG TAB PO SCH ×2 (08:04→17:00)
[2020-11-22] MEDS: ENOXAPARIN 30 MG/0.3 ML SYR SC SCH ×2 (08:04→20:37)
[2020-11-22] MEDS: ZINC SULFATE 50 MG CAP PO SCH (08:04)
[2020-11-22 09:01] LABS: ABG HCO3 28 mmol/L (22-26); ABG PCO2 59 mmHg (35-45); ABG PH 7.28 (7.35-7.45); ABG PO2 139 mmHg (80-105); ABG TCO2 29
[2020-11-22] MEDS: ALBUMIN 25% 25GM 100ML 0.25 GM/ML BTL IV SCH ×2 (13:00→20:37)
[2020-11-22] MEDS: FUROSEMIDE INJ 10 MG/ML 4 ML VIAL IV SCH ×2 (14:00→20:37)
[2020-11-22 17:02] LABS: ABG HCO3 26 mmol/L (22-26); ABG PCO2 51 mmHg (35-45); ABG PH 7.31 (7.35-7.45); ABG PO2 77 mmHg (80-105); ABG TCO2 27
[2020-11-22] MEDS: QUETIAPINE FUMARATE 25 MG TAB PO SCH (20:26)
[2020-11-22] MEDS: SIMVASTATIN 20 MG TAB PO SCH (20:37)
[2020-11-23] VITALS (30 sets, daily range): BP systolic 97–139; BP diastolic 42–76
[2020-11-23] MEDS: Vancomycin IV 1 GM in SODIUM CHLORIDE 0.9% 250ML 250 ML IV SCH (00:12)
[2020-11-23] MEDS: INSULIN LISPRO 100 UNIT/1 ML 3ML VIAL SQ SCH ×6 (00:13→23:45)
[2020-11-23] MEDS: FENTANYL 2000MCG/NS 250 250 ML IV SCH ×3 (01:47→23:00)
[2020-11-23] MEDS: MIDAZOLAM HCL 5MG/ML 10ML VIAL 100 ML IV PRN ×5 (01:50→21:20)
[2020-11-23] MEDS: ALBUMIN 25% 25GM 100ML 0.25 GM/ML BTL IV SCH (04:00)
[2020-11-23 05:03] LABS: BASOPHILS # (AUTO) 0.1 (0.0-0.1); BASOPHILS % 0.3 % (0.0-1.0); HEMATOCRIT 33.4 % (34.2-44.1); HEMOGLOBIN 10.4 g/dL (12.0-16.0); LYMPHOCYTES # (AUTO) 0.6 (1.0-3.2); LYMPHOCYTES % 3.2 % (18.0-39.1); MEAN CORPUSCULAR HEMOGLOBIN 27.9 pg (28-32); MEAN CORPUSCULAR HGB CONC 31.1 g/dL (31-35); MEAN CORPUSCULAR VOLUME 89.5 fL (81-99); MONOCYTES % 5.2 % (4.4-11.3); NEUTROPHILS # (AUTO) 17.3 (2.1-6.9); NEUTROPHILS % 89.3 % (38.7-80.0); PLATELET COUNT 358 x10e3/uL (140-360); RED BLOOD COUNT 3.73 x10e6/uL (3.6-5.1); RED CELL DISTRIBUTION WIDTH 14.1 % (11.7-14.4)
[2020-11-23 05:37] LABS: ALBUMIN 2.9 g/dL (3.5-5.0); ALBUMIN/GLOBULIN RATIO 0.8 (0.8-2.0); ANION GAP 13.4 mmol/L (8-16); CALCIUM 8.5 mg/dL (8.4-10.2); CREATININE, SERUM 1.02 mg/dL (0.57-1.11); POTASSIUM 4.4 mmol/L (3.5-5.1)
[2020-11-23] MEDS: LEVOTHYROXINE SODIUM 75 MCG TAB PO SCH (05:57)
[2020-11-23] MEDS: MEROPENEM 1 GM in SODIUM CHLORIDE 0.9% 100 ML IV SCH ×3 (05:57→22:22)
[2020-11-23 06:05] LABS: LYMPHOCYTES % (MANUAL) 3 % (19-48); MONOCYTES % (MANUAL) 5 % (3.4-9.0); NEUTROPHILS % (MANUAL) 92 % (40-74); PLATELET ESTIMATE ADEQUATE; PLATELET MORPHOLOGY COMMENT MODERATE LARGE; RBC MORPHOLOGY COMMENT NORMAL
[2020-11-23 08:24] LABS: ABG HCO3 26 mmol/L (22-26); ABG PCO2 46 mmHg (35-45); ABG PH 7.36 (7.35-7.45); ABG PO2 53 mmHg (80-105); ABG TCO2 27
[2020-11-23] MEDS ORDERED: ALBUMIN 25% 25GM 100ML 0.25 GM/ML BTL IV SCH (09:00)
[2020-11-23] MEDS: ENOXAPARIN 30 MG/0.3 ML SYR SC SCH ×2 (10:51→21:28)
[2020-11-23] MEDS: ZINC SULFATE 50 MG CAP PO SCH (10:51)
[2020-11-23] MEDS: ASCORBIC ACID 500 MG TAB PO SCH ×2 (10:51→16:54)
[2020-11-23] MEDS: LINEZOLID 600 MG/D5W 300ML 300 ML IV SCH ×2 (10:56→21:28)
[2020-11-23] MEDS: ALBUMIN 25% 25GM 100ML 100 ML IV SCH ×2 (10:56→16:54)
[2020-11-23] MEDS: FUROSEMIDE INJ 10 MG/ML 4 ML VIAL IV SCH ×2 (10:56→21:28)
[2020-11-23] MEDS: PRASUGREL 10 MG TAB PO SCH (12:25)
[2020-11-23] MEDS ORDERED: SODIUM CHLORIDE 0.9% 1000ML 1,000 ML ONE (13:23)
[2020-11-23] MEDS ORDERED: NOREPINEPHRINE 8 MG/D5W 250 ML 250 ML IV PRN (14:30)
[2020-11-23] MEDS: ROCURONIUM 1250MG/NS 250 250 ML IV PRN (19:00)
[2020-11-23] MEDS: QUETIAPINE FUMARATE 25 MG TAB PO SCH (19:27)
[2020-11-23] MEDS: SIMVASTATIN 20 MG TAB PO SCH (21:28)
[2020-11-23] MEDS: INSULIN GLARGINE 100 UNITS/ML VIAL SQ SCH (21:29)
[2020-11-24] VITALS (26 sets, daily range): BP systolic 104–138; BP diastolic 48–68
[2020-11-24] MEDS: ALBUMIN 25% 25GM 100ML 100 ML IV SCH (01:00)
[2020-11-24] MEDS: MIDAZOLAM HCL 5MG/ML 10ML VIAL 100 ML IV PRN ×3 (04:27→13:55)
[2020-11-24 05:04] LABS: BASOPHILS % 0.2 % (0.0-1.0); HEMATOCRIT 31.9 % (34.2-44.1); HEMOGLOBIN 9.8 g/dL (12.0-16.0); LYMPHOCYTES # (AUTO) 0.4 (1.0-3.2); LYMPHOCYTES % 3.3 % (18.0-39.1); MEAN CORPUSCULAR HEMOGLOBIN 27.6 pg (28-32); MEAN CORPUSCULAR HGB CONC 30.7 g/dL (31-35); MEAN CORPUSCULAR VOLUME 89.9 fL (81-99); MONOCYTES # (AUTO) 0.7 (0.2-0.8); MONOCYTES % 5.8 % (4.4-11.3); NEUTROPHILS % 89.2 % (38.7-80.0); PLATELET COUNT 299 x10e3/uL (140-360); RED BLOOD COUNT 3.55 x10e6/uL (3.6-5.1); RED CELL DISTRIBUTION WIDTH 14.3 % (11.7-14.4)
[2020-11-24 05:20] LABS: ALBUMIN 3.2 g/dL (3.5-5.0); ANION GAP 11.7 mmol/L (8-16); CALCIUM 8.7 mg/dL (8.4-10.2); CREATININE, SERUM 0.9 mg/dL (0.57-1.11); POTASSIUM 4.7 mmol/L (3.5-5.1)
[2020-11-24] MEDS: LEVOTHYROXINE SODIUM 75 MCG TAB PO SCH (05:52)
[2020-11-24] MEDS: MEROPENEM 1 GM in SODIUM CHLORIDE 0.9% 100 ML IV SCH ×3 (05:52→21:10)
[2020-11-24] MEDS: INSULIN LISPRO 100 UNIT/1 ML 3ML VIAL SQ SCH ×4 (05:57→21:11)
[2020-11-24 08:10] LABS: ABG HCO3 30 mmol/L (22-26); ABG PCO2 58 mmHg (35-45); ABG PH 7.33 (7.35-7.45); ABG PO2 80 mmHg (80-105); ABG TCO2 32
[2020-11-24] MEDS: FENTANYL 2000MCG/NS 250 250 ML IV SCH ×3 (08:17→23:00)
[2020-11-24] MEDS: PRASUGREL 10 MG TAB PO SCH (08:22)
[2020-11-24] MEDS: LINEZOLID 600 MG/D5W 300ML 300 ML IV SCH ×2 (08:22→21:09)
[2020-11-24] MEDS: FUROSEMIDE INJ 10 MG/ML 4 ML VIAL IV SCH ×2 (08:22→21:09)
[2020-11-24] MEDS: ASCORBIC ACID 500 MG TAB PO SCH ×2 (08:23→16:04)
[2020-11-24] MEDS: ENOXAPARIN 30 MG/0.3 ML SYR SC SCH ×2 (08:23→21:09)
[2020-11-24] MEDS: ZINC SULFATE 50 MG CAP PO SCH (08:23)
[2020-11-24] MEDS: ROCURONIUM 1250MG/NS 250 250 ML IV PRN (18:46)
[2020-11-24] MEDS: SIMVASTATIN 20 MG TAB PO SCH (21:09)
[2020-11-24] MEDS: QUETIAPINE FUMARATE 25 MG TAB PO SCH (21:09)
[2020-11-24] MEDS: INSULIN GLARGINE 100 UNITS/ML VIAL SQ SCH (21:11)
[2020-11-25] VITALS (28 sets, daily range): BP systolic 89–155; BP diastolic 45–85
[2020-11-25] MEDS: FENTANYL 2000MCG/NS 250 250 ML IV SCH ×3 (03:50→17:58)
[2020-11-25 04:37] LABS: BASOPHILS % 0.2 % (0.0-1.0); HEMATOCRIT 37.9 % (34.2-44.1); HEMOGLOBIN 11.4 g/dL (12.0-16.0); LYMPHOCYTES # (AUTO) 0.4 (1.0-3.2); LYMPHOCYTES % 2.5 % (18.0-39.1); MEAN CORPUSCULAR HEMOGLOBIN 27.7 pg (28-32); MEAN CORPUSCULAR HGB CONC 30.1 g/dL (31-35); MEAN CORPUSCULAR VOLUME 92.2 fL (81-99); MONOCYTES # (AUTO) 0.7 (0.2-0.8); MONOCYTES % 3.8 % (4.4-11.3); NEUTROPHILS # (AUTO) 15.9 (2.1-6.9); NEUTROPHILS % 91.4 % (38.7-80.0); PLATELET COUNT 347 x10e3/uL (140-360); RED BLOOD COUNT 4.11 x10e6/uL (3.6-5.1); RED CELL DISTRIBUTION WIDTH 14.6 % (11.7-14.4)
[2020-11-25 04:56] LABS: ALBUMIN 2.7 g/dL (3.5-5.0); ALBUMIN/GLOBULIN RATIO 0.7 (0.8-2.0); ANION GAP 15.7 mmol/L (8-16); CREATININE, SERUM 0.75 mg/dL (0.57-1.11); POTASSIUM 4.7 mmol/L (3.5-5.1)
[2020-11-25] MEDS: INSULIN LISPRO 100 UNIT/1 ML 3ML VIAL SQ SCH ×4 (06:00→23:11)
[2020-11-25] MEDS: LEVOTHYROXINE SODIUM 75 MCG TAB PO SCH (06:09)
[2020-11-25] MEDS: MEROPENEM 1 GM in SODIUM CHLORIDE 0.9% 100 ML IV SCH ×3 (06:09→21:39)
[2020-11-25] MEDS: PRASUGREL 10 MG TAB PO SCH (08:37)
[2020-11-25] MEDS: LINEZOLID 600 MG/D5W 300ML 300 ML IV SCH ×2 (08:37→21:39)
[2020-11-25] MEDS: FUROSEMIDE INJ 10 MG/ML 4 ML VIAL IV SCH ×2 (08:37→21:39)
[2020-11-25] MEDS: ASCORBIC ACID 500 MG TAB PO SCH ×2 (08:37→16:49)
[2020-11-25] MEDS: ZINC SULFATE 50 MG CAP PO SCH (08:37)
[2020-11-25] MEDS ORDERED: ENOXAPARIN 30 MG/0.3 ML SYR SC SCH (09:00)
[2020-11-25] MEDS: MIDAZOLAM HCL 5MG/ML 10ML VIAL 100 ML IV PRN ×3 (09:09→20:16)
[2020-11-25 09:36] LABS: ABG PH 7.25 (7.35-7.45)
[2020-11-25 09:37] LABS: ABG HCO3 34 mmol/L (22-26); ABG PCO2 79 mmHg (35-45); ABG PO2 41 mmHg (80-105); ABG TCO2 37
[2020-11-25] MEDS: NOREPINEPHRINE 8 MG/D5W 250 ML 250 ML IV SCH (11:37)
[2020-11-25 13:40] LABS: INR 1.14; PARTIAL THROMBOPLASTIN TIME 34.3 seconds (23.8-35.5); PROTHROMBIN TIME 14.8 seconds (11.9-14.5)
[2020-11-25] MEDS: ROCURONIUM 1250MG/NS 250 250 ML IV PRN ×2 (20:14→20:15)
[2020-11-25] MEDS: SIMVASTATIN 20 MG TAB PO SCH (21:39)
[2020-11-25] MEDS: ENOXAPARIN 30 MG/0.3 ML SYR SC SCH (21:39)
[2020-11-25] MEDS: QUETIAPINE FUMARATE 25 MG TAB PO SCH (21:39)
[2020-11-25] MEDS: INSULIN GLARGINE 100 UNITS/ML VIAL SQ SCH (22:50)
[2020-11-26] VITALS (23 sets, daily range): BP systolic 109–136; BP diastolic 50–57
[2020-11-26] MEDS: FENTANYL 2000MCG/NS 250 250 ML IV SCH ×4 (01:06→21:07)
[2020-11-26] MEDS: MIDAZOLAM HCL 5MG/ML 10ML VIAL 100 ML IV PRN ×5 (01:07→22:52)
[2020-11-26 04:31] LABS: BASOPHILS % 0.3 % (0.0-1.0); EOSINOPHILS % 0.1 % (0.0-6.0); HEMATOCRIT 35.1 % (34.2-44.1); HEMOGLOBIN 10.2 g/dL (12.0-16.0); LYMPHOCYTES # (AUTO) 0.4 (1.0-3.2); LYMPHOCYTES % 2.6 % (18.0-39.1); MEAN CORPUSCULAR HEMOGLOBIN 27.5 pg (28-32); MEAN CORPUSCULAR HGB CONC 29.1 g/dL (31-35); MEAN CORPUSCULAR VOLUME 94.6 fL (81-99); MONOCYTES # (AUTO) 0.5 (0.2-0.8); MONOCYTES % 3.1 % (4.4-11.3); NEUTROPHILS # (AUTO) 14.1 (2.1-6.9); NEUTROPHILS % 91.9 % (38.7-80.0); PLATELET COUNT 243 x10e3/uL (140-360); RED BLOOD COUNT 3.71 x10e6/uL (3.6-5.1); RED CELL DISTRIBUTION WIDTH 14.6 % (11.7-14.4)
[2020-11-26 04:40] LABS: INR 1.19; PROTHROMBIN TIME 15.4 seconds (11.9-14.5)
[2020-11-26 04:41] LABS: PARTIAL THROMBOPLASTIN TIME 38.2 seconds (23.8-35.5)
[2020-11-26 04:47] LABS: ALBUMIN/GLOBULIN RATIO 0.5 (0.8-2.0); ANION GAP 10.5 mmol/L (8-16); CALCIUM 8.7 mg/dL (8.4-10.2); CREATININE, SERUM 0.76 mg/dL (0.57-1.11); POTASSIUM 4.5 mmol/L (3.5-5.1)
[2020-11-26] MEDS: LEVOTHYROXINE SODIUM 75 MCG TAB PO SCH (05:50)
[2020-11-26] MEDS: MEROPENEM 1 GM in SODIUM CHLORIDE 0.9% 100 ML IV SCH ×3 (05:50→21:14)
[2020-11-26] MEDS: INSULIN LISPRO 100 UNIT/1 ML 3ML VIAL SQ SCH ×4 (06:04→21:06)
[2020-11-26] MEDS: ENOXAPARIN 30 MG/0.3 ML SYR SC SCH (08:23)
[2020-11-26] MEDS: ZINC SULFATE 50 MG CAP PO SCH (08:26)
[2020-11-26] MEDS: FUROSEMIDE INJ 10 MG/ML 4 ML VIAL IV SCH ×2 (08:26→21:14)
[2020-11-26] MEDS: LINEZOLID 600 MG/D5W 300ML 300 ML IV SCH ×2 (08:26→21:14)
[2020-11-26] MEDS: PRASUGREL 10 MG TAB PO SCH (08:26)
[2020-11-26] MEDS: ASCORBIC ACID 500 MG TAB PO SCH ×2 (08:26→16:37)
[2020-11-26 09:40] LABS: ABG HCO3 37 mmol/L (22-26); ABG PCO2 79 mmHg (35-45); ABG PH 7.27 (7.35-7.45); ABG PO2 58 mmHg (80-105); ABG TCO2 39
[2020-11-26] MEDS: NOREPINEPHRINE 8 MG/D5W 250 ML 250 ML IV SCH (10:58)
[2020-11-26] MEDS: ALBUMIN 25% 25GM 100ML 0.25 GM/ML BTL IV SCH ×2 (13:16→22:49)
[2020-11-26] MEDS: INSULIN GLARGINE 100 UNITS/ML VIAL SQ SCH (20:49)
[2020-11-26] MEDS: ROCURONIUM 1250MG/NS 250 250 ML IV PRN (21:06)
[2020-11-26] MEDS: QUETIAPINE FUMARATE 25 MG TAB PO SCH (21:14)
[2020-11-26] MEDS: SIMVASTATIN 20 MG TAB PO SCH (21:14)
[2020-11-26] MEDS: ENOXAPARIN INJ 80 MG/0.8 ML SYR SC SCH (21:14)
[2020-11-27] VITALS (17 sets, daily range): BP systolic 94–133; BP diastolic 41–57
[2020-11-27] MEDS: MIDAZOLAM HCL 5MG/ML 10ML VIAL 100 ML IV PRN ×4 (04:25→19:47)
[2020-11-27] MEDS: FENTANYL 2000MCG/NS 250 250 ML IV SCH ×3 (04:25→19:46)
[2020-11-27] MEDS: ALBUMIN 25% 25GM 100ML 0.25 GM/ML BTL IV SCH (05:26)
[2020-11-27] MEDS: MEROPENEM 1 GM in SODIUM CHLORIDE 0.9% 100 ML IV SCH ×3 (05:27→22:07)
[2020-11-27] MEDS: LEVOTHYROXINE SODIUM 75 MCG TAB PO SCH (05:27)
[2020-11-27] MEDS: INSULIN LISPRO 100 UNIT/1 ML 3ML VIAL SQ SCH ×3 (05:54→17:53)
[2020-11-27 06:07] LABS: BASOPHILS % 0.2 % (0.0-1.0); EOSINOPHILS % 0.2 % (0.0-6.0); HEMATOCRIT 34.5 % (34.2-44.1); HEMOGLOBIN 9.9 g/dL (12.0-16.0); LYMPHOCYTES # (AUTO) 0.4 (1.0-3.2); LYMPHOCYTES % 2.4 % (18.0-39.1); MEAN CORPUSCULAR HEMOGLOBIN 27.8 pg (28-32); MEAN CORPUSCULAR HGB CONC 28.7 g/dL (31-35); MEAN CORPUSCULAR VOLUME 96.9 fL (81-99); MONOCYTES # (AUTO) 0.5 (0.2-0.8); MONOCYTES % 3.1 % (4.4-11.3); NEUTROPHILS # (AUTO) 13.9 (2.1-6.9); NEUTROPHILS % 91.2 % (38.7-80.0); PLATELET COUNT 248 x10e3/uL (140-360); RED BLOOD COUNT 3.56 x10e6/uL (3.6-5.1); RED CELL DISTRIBUTION WIDTH 14.8 % (11.7-14.4)
[2020-11-27 06:40] LABS: ALBUMIN 2.4 g/dL (3.5-5.0); ALBUMIN/GLOBULIN RATIO 0.7 (0.8-2.0); ANION GAP 13.8 mmol/L (8-16); CALCIUM 9.1 mg/dL (8.4-10.2); CREATININE, SERUM 0.69 mg/dL (0.57-1.11); POTASSIUM 4.8 mmol/L (3.5-5.1)
[2020-11-27 07:59] LABS: ABG PH 7.28 (7.35-7.45)
[2020-11-27 08:00] LABS: ABG HCO3 40 mmol/L (22-26); ABG PCO2 85 mmHg (35-45); ABG PO2 61 mmHg (80-105); ABG TCO2 42
[2020-11-27] MEDS: FUROSEMIDE INJ 10 MG/ML 4 ML VIAL IV SCH (08:57)
[2020-11-27] MEDS: LINEZOLID 600 MG/D5W 300ML 300 ML IV SCH ×2 (08:59→21:41)
[2020-11-27] MEDS: ENOXAPARIN INJ 80 MG/0.8 ML SYR SC SCH ×2 (09:00→21:41)
[2020-11-27] MEDS: ASCORBIC ACID 500 MG TAB PO SCH ×2 (09:00→16:31)
[2020-11-27] MEDS: ZINC SULFATE 50 MG CAP PO SCH (09:00)
[2020-11-27] MEDS: PRASUGREL 10 MG TAB PO SCH (09:00)
[2020-11-27] MEDS: ROCURONIUM 1250MG/NS 250 250 ML IV PRN (19:46)
[2020-11-27] MEDS: SIMVASTATIN 20 MG TAB PO SCH (21:41)
[2020-11-27] MEDS: QUETIAPINE FUMARATE 25 MG TAB PO SCH (21:41)
[2020-11-27] MEDS: INSULIN GLARGINE 100 UNITS/ML VIAL SQ SCH (21:42)
[2020-11-28] VITALS (17 sets, daily range): BP systolic 82–120; BP diastolic 39–51
[2020-11-28] MEDS: MIDAZOLAM HCL 5MG/ML 10ML VIAL 100 ML IV PRN ×3 (01:15→17:23)
[2020-11-28] MEDS: INSULIN LISPRO 100 UNIT/1 ML 3ML VIAL SQ SCH ×4 (01:43→16:24)
[2020-11-28 05:08] LABS: BASOPHILS # (AUTO) 0.1 (0.0-0.1); BASOPHILS % 0.3 % (0.0-1.0); EOSINOPHILS # (AUTO) 0.1 (0.0-0.4); EOSINOPHILS % 0.3 % (0.0-6.0); HEMATOCRIT 33.2 % (34.2-44.1); HEMOGLOBIN 9.7 g/dL (12.0-16.0); LYMPHOCYTES # (AUTO) 0.5 (1.0-3.2); LYMPHOCYTES % 2.5 % (18.0-39.1); MEAN CORPUSCULAR HEMOGLOBIN 27.7 pg (28-32); MEAN CORPUSCULAR HGB CONC 29.2 g/dL (31-35); MEAN CORPUSCULAR VOLUME 94.9 fL (81-99); MONOCYTES # (AUTO) 0.6 (0.2-0.8); MONOCYTES % 3.3 % (4.4-11.3); NEUTROPHILS # (AUTO) 16.8 (2.1-6.9); NEUTROPHILS % 91.3 % (38.7-80.0); PLATELET COUNT 243 x10e3/uL (140-360)
[2020-11-28 05:44] LABS: ALBUMIN 2.1 g/dL (3.5-5.0); ALBUMIN/GLOBULIN RATIO 0.6 (0.8-2.0); CREATININE, SERUM 0.74 mg/dL (0.57-1.11)
[2020-11-28] MEDS: MEROPENEM 1 GM in SODIUM CHLORIDE 0.9% 100 ML IV SCH ×3 (06:26→22:41)
[2020-11-28] MEDS: LEVOTHYROXINE SODIUM 75 MCG TAB PO SCH (06:26)
[2020-11-28 07:27] LABS: BAND NEUTROPHILS % (MANUAL) 5 %; LYMPHOCYTES % (MANUAL) 1 % (19-48); METAMYELOCYTES % (MANUAL) 1 % (0-0); MONOCYTES % (MANUAL) 5 % (3.4-9.0); MYELOCYTES % (MANUAL) 1 % (0-0); NEUTROPHILS % (MANUAL) 86 % (40-74)
[2020-11-28 07:28] LABS: HYPOCHROMASIA SLIGHT; PLATELET ESTIMATE ADEQUATE; PLATELET MORPHOLOGY COMMENT FEW LARGE; RBC MORPHOLOGY COMMENT NORMAL
[2020-11-28 08:20] LABS: ABG HCO3 39 mmol/L (22-26); ABG PCO2 73 mmHg (35-45); ABG PH 7.33 (7.35-7.45); ABG PO2 50 mmHg (80-105); ABG TCO2 41
[2020-11-28] MEDS: LINEZOLID 600 MG/D5W 300ML 300 ML IV SCH ×2 (09:03→21:08)
[2020-11-28] MEDS: ZINC SULFATE 50 MG CAP PO SCH (09:03)
[2020-11-28] MEDS: ASCORBIC ACID 500 MG TAB PO SCH ×2 (09:03→16:20)
[2020-11-28] MEDS: ENOXAPARIN INJ 80 MG/0.8 ML SYR SC SCH ×2 (09:03→21:08)
[2020-11-28] MEDS: PRASUGREL 10 MG TAB PO SCH (09:03)
[2020-11-28] MEDS: FENTANYL 2000MCG/NS 250 250 ML IV SCH ×2 (09:26→17:22)
[2020-11-28] MEDS: NOREPINEPHRINE 8 MG/D5W 250 ML 250 ML IV SCH (11:16)
[2020-11-28] MEDS ORDERED: SODIUM CHLORIDE 0.9% 250ML 250 ML ONE (16:09)
[2020-11-28] MEDS: QUETIAPINE FUMARATE 25 MG TAB PO SCH (21:08)
[2020-11-28] MEDS: SIMVASTATIN 20 MG TAB PO SCH (21:08)
[2020-11-28] MEDS: INSULIN GLARGINE 100 UNITS/ML VIAL SQ SCH (21:31)
[2020-11-29] VITALS (27 sets, daily range): BP systolic 39–162; BP diastolic 25–67
[2020-11-29] MEDS: NOREPINEPHRINE 8 MG/D5W 250 ML 250 ML IV SCH (00:13)
[2020-11-29] MEDS: INSULIN LISPRO 100 UNIT/1 ML 3ML VIAL SQ SCH ×4 (00:15→17:50)
[2020-11-29] MEDS: FENTANYL 2000MCG/NS 250 250 ML IV SCH ×4 (00:20→19:57)
[2020-11-29] MEDS: VASOPRESSIN 60 UNIT in DEXTROSE 5% 50ML 57 ML IV PRN (04:15)
[2020-11-29] MEDS ORDERED: VASOPRESSIN INJ 20 UNIT/ML VIAL ONE (04:18)
[2020-11-29] MEDS ORDERED: DEXTROSE 5% 100ML 100 ML IV ONE (04:18)
[2020-11-29] MEDS ORDERED: SODIUM BICARBONATE 8.4% INJ 50 ML SYR IV STA (04:55)
[2020-11-29] MEDS ORDERED: SODIUM BICARBONATE 8.4% SYRING 100 ML ONE (05:06)
[2020-11-29] MEDS ORDERED: PHENYLEPHRINE HCL IN 0.9% NACL 250 ML IV ONE (05:14)
[2020-11-29] MEDS: PHENYLEPHRINE 10MG/ML VIAL 40 MG in DEXTROSE 5% 250ML 246 ML IV SCH ×3 (05:15→12:23)
[2020-11-29] MEDS ORDERED: ATROPINE SULFATE 0.1 MG/ML 10ML SYR ONE (05:19)
[2020-11-29 05:24] LABS: BASOPHILS # (AUTO) 0.1 (0.0-0.1); BASOPHILS % 0.5 % (0.0-1.0); HEMOGLOBIN 8.8 g/dL (12.0-16.0); LYMPHOCYTES # (AUTO) 0.9 (1.0-3.2); LYMPHOCYTES % 3.8 % (18.0-39.1); MEAN CORPUSCULAR HEMOGLOBIN 27.5 pg (28-32); MEAN CORPUSCULAR HGB CONC 28.4 g/dL (31-35); MEAN CORPUSCULAR VOLUME 96.9 fL (81-99); MONOCYTES # (AUTO) 0.7 (0.2-0.8); MONOCYTES % 3.1 % (4.4-11.3); NEUTROPHILS # (AUTO) 20.3 (2.1-6.9); NEUTROPHILS % 89.7 % (38.7-80.0); PLATELET COUNT 206 x10e3/uL (140-360); RED CELL DISTRIBUTION WIDTH 15.2 % (11.7-14.4)
[2020-11-29] MEDS: MEROPENEM 1 GM in SODIUM CHLORIDE 0.9% 100 ML IV SCH ×3 (05:37→21:23)
[2020-11-29] MEDS: LEVOTHYROXINE SODIUM 75 MCG TAB PO SCH (05:37)
[2020-11-29 05:54] LABS: ALBUMIN 1.4 g/dL (3.5-5.0); ALBUMIN/GLOBULIN RATIO 0.4 (0.8-2.0); ANION GAP 14.6 mmol/L (8-16); CALCIUM 8.1 mg/dL (8.4-10.2); CREATININE, SERUM 1.03 mg/dL (0.57-1.11); POTASSIUM 5.6 mmol/L (3.5-5.1)
[2020-11-29 07:38] LABS: BAND NEUTROPHILS % (MANUAL) 3 %; LYMPHOCYTES % (MANUAL) 5 % (19-48); MONOCYTES % (MANUAL) 4 % (3.4-9.0); NEUTROPHILS % (MANUAL) 88 % (40-74); NUCLEATED RED BLOOD CELLS 1
[2020-11-29 07:39] LABS: PLATELET ESTIMATE ADEQUATE; PLATELET MORPHOLOGY COMMENT FEW LARGE; RBC MORPHOLOGY COMMENT NORMAL
[2020-11-29] MEDS: LINEZOLID 600 MG/D5W 300ML 300 ML IV SCH ×2 (08:05→21:23)
[2020-11-29] MEDS: PRASUGREL 10 MG TAB PO SCH (08:06)
[2020-11-29] MEDS: ZINC SULFATE 50 MG CAP PO SCH (08:06)
[2020-11-29] MEDS: ENOXAPARIN INJ 80 MG/0.8 ML SYR SC SCH ×2 (08:06→21:23)
[2020-11-29] MEDS: ASCORBIC ACID 500 MG TAB PO SCH ×2 (08:06→16:23)
[2020-11-29 09:11] LABS: ABG PH 7.22 (7.35-7.45)
[2020-11-29 09:12] LABS: ABG HCO3 38 mmol/L (22-26); ABG PCO2 92 mmHg (35-45); ABG PO2 45 mmHg (80-105); ABG TCO2 41
[2020-11-29] MEDS: MIDAZOLAM HCL 5MG/ML 10ML VIAL 100 ML IV PRN ×2 (09:35→19:59)
[2020-11-29] MEDS: ROCURONIUM 1250MG/NS 250 250 ML IV PRN (19:58)
[2020-11-29] MEDS: SIMVASTATIN 20 MG TAB PO SCH (21:23)
[2020-11-29] MEDS: QUETIAPINE FUMARATE 25 MG TAB PO SCH (21:23)
[2020-11-29] MEDS: INSULIN GLARGINE 100 UNITS/ML VIAL SQ SCH (21:30)
[2020-11-30] VITALS (25 sets, daily range): BP systolic 91–117; BP diastolic 42–53
[2020-11-30] MEDS: INSULIN LISPRO 100 UNIT/1 ML 3ML VIAL SQ SCH ×5 (01:17→18:00)
[2020-11-30] MEDS: NOREPINEPHRINE 8 MG/D5W 250 ML 250 ML IV SCH ×3 (01:19→21:37)
[2020-11-30] MEDS ORDERED: VASOPRESSIN INJ 20 UNIT/ML VIAL ONE (01:22)
[2020-11-30] MEDS ORDERED: SODIUM CHLORIDE 0.9% 100 ML ONE (01:23)
[2020-11-30] MEDS: MIDAZOLAM HCL 5MG/ML 10ML VIAL 100 ML IV PRN ×5 (01:28→22:07)
[2020-11-30] MEDS ORDERED: DEXTROSE 5% 50ML 50 ML IV ONE (02:20)
[2020-11-30] MEDS: VASOPRESSIN 60 UNIT in DEXTROSE 5% 50ML 57 ML IV PRN ×2 (02:20→23:59)
[2020-11-30] MEDS: FENTANYL 2000MCG/NS 250 250 ML IV SCH ×3 (02:24→17:07)
[2020-11-30 05:55] LABS: BASOPHILS # (AUTO) 0.1 (0.0-0.1); BASOPHILS % 0.4 % (0.0-1.0); EOSINOPHILS # (AUTO) 0.1 (0.0-0.4); EOSINOPHILS % 0.5 % (0.0-6.0); HEMATOCRIT 31.2 % (34.2-44.1); HEMOGLOBIN 9.1 g/dL (12.0-16.0); LYMPHOCYTES # (AUTO) 0.9 (1.0-3.2); LYMPHOCYTES % 4.7 % (18.0-39.1); MEAN CORPUSCULAR HEMOGLOBIN 27.3 pg (28-32); MEAN CORPUSCULAR HGB CONC 29.2 g/dL (31-35); MEAN CORPUSCULAR VOLUME 93.7 fL (81-99); MONOCYTES # (AUTO) 0.6 (0.2-0.8); MONOCYTES % 3.2 % (4.4-11.3); NEUTROPHILS # (AUTO) 16.4 (2.1-6.9); NEUTROPHILS % 88.1 % (38.7-80.0); PLATELET COUNT 206 x10e3/uL (140-360); RED BLOOD COUNT 3.33 x10e6/uL (3.6-5.1); RED CELL DISTRIBUTION WIDTH 15.4 % (11.7-14.4)
[2020-11-30 06:22] LABS: ALBUMIN 1.4 g/dL (3.5-5.0); ALBUMIN/GLOBULIN RATIO 0.3 (0.8-2.0); ANION GAP 17.3 mmol/L (8-16); CALCIUM 7.9 mg/dL (8.4-10.2); CREATININE, SERUM 0.99 mg/dL (0.57-1.11); POTASSIUM 5.3 mmol/L (3.5-5.1)
[2020-11-30] MEDS: MEROPENEM 1 GM in SODIUM CHLORIDE 0.9% 100 ML IV SCH ×3 (06:35→21:35)
[2020-11-30] MEDS: LEVOTHYROXINE SODIUM 75 MCG TAB PO SCH (06:35)
[2020-11-30] MEDS: ASCORBIC ACID 500 MG TAB PO SCH ×2 (08:34→17:11)
[2020-11-30] MEDS: PRASUGREL 10 MG TAB PO SCH (08:34)
[2020-11-30] MEDS: ZINC SULFATE 50 MG CAP PO SCH (08:34)
[2020-11-30] MEDS: ENOXAPARIN INJ 80 MG/0.8 ML SYR SC SCH ×2 (08:34→21:32)
[2020-11-30 10:29] LABS: ABG PH 7.25 (7.35-7.45)
[2020-11-30 10:30] LABS: ABG HCO3 36 mmol/L (22-26); ABG PCO2 81 mmHg (35-45); ABG PO2 52 mmHg (80-105); ABG TCO2 38
[2020-11-30] MEDS: ROCURONIUM 1250MG/NS 250 250 ML IV PRN (13:46)
[2020-11-30] MEDS: DEXAMETHASONE SOD PHOS 10 MG/1 ML VIAL IV SCH (18:20)
[2020-11-30] MEDS: INSULIN GLARGINE 100 UNITS/ML VIAL SQ SCH (21:33)
[2020-12-01] VITALS (26 sets, daily range): BP systolic 94–139; BP diastolic 41–59
[2020-12-01] MEDS: FENTANYL 2000MCG/NS 250 250 ML IV SCH ×4 (00:10→22:51)
[2020-12-01] MEDS: INSULIN LISPRO 100 UNIT/1 ML 3ML VIAL SQ SCH ×4 (00:13→18:25)
[2020-12-01] MEDS: NOREPINEPHRINE 8 MG/D5W 250 ML 250 ML IV SCH ×4 (01:12→17:00)
[2020-12-01] MEDS: VASOPRESSIN 60 UNIT in DEXTROSE 5% 50ML 57 ML IV PRN ×2 (01:13→13:49)
[2020-12-01] MEDS: PHENYLEPHRINE 10MG/ML VIAL 40 MG in DEXTROSE 5% 250ML 246 ML IV SCH ×6 (01:15→23:48)
[2020-12-01] MEDS: MIDAZOLAM HCL 5MG/ML 10ML VIAL 100 ML IV PRN ×4 (03:16→18:28)
[2020-12-01] MEDS: LEVOTHYROXINE SODIUM 75 MCG TAB PO SCH (05:12)
[2020-12-01] MEDS: MEROPENEM 1 GM in SODIUM CHLORIDE 0.9% 100 ML IV SCH (05:12)
[2020-12-01 06:21] LABS: BASOPHILS # (AUTO) 0.1 (0.0-0.1); BASOPHILS % 0.5 % (0.0-1.0); HEMATOCRIT 32.6 % (34.2-44.1); HEMOGLOBIN 9.1 g/dL (12.0-16.0); LYMPHOCYTES # (AUTO) 0.7 (1.0-3.2); LYMPHOCYTES % 2.8 % (18.0-39.1); MEAN CORPUSCULAR HEMOGLOBIN 27.1 pg (28-32); MEAN CORPUSCULAR HGB CONC 27.9 g/dL (31-35); MONOCYTES # (AUTO) 0.6 (0.2-0.8); MONOCYTES % 2.5 % (4.4-11.3); NEUTROPHILS # (AUTO) 22.8 (2.1-6.9); NEUTROPHILS % 90.1 % (38.7-80.0); PLATELET COUNT 228 x10e3/uL (140-360); RED BLOOD COUNT 3.36 x10e6/uL (3.6-5.1); RED CELL DISTRIBUTION WIDTH 15.6 % (11.7-14.4)
[2020-12-01 06:37] LABS: ANION GAP 15.8 mmol/L (8-16); CALCIUM 7.6 mg/dL (8.4-10.2); CREATININE, SERUM 1.01 mg/dL (0.57-1.11)
[2020-12-01 06:49] LABS: POTASSIUM 6.8 mmol/L (3.5-5.1)
[2020-12-01] MEDS ORDERED: DEXTROSE 50% SYRINGE 50 ML IV ONE (07:36)
[2020-12-01] MEDS ORDERED: SODIUM BICARBONATE 8.4% 50 ML VIAL IV STA (07:36)
[2020-12-01 07:41] LABS: LYMPHOCYTES % (MANUAL) 8 % (19-48); MONOCYTES % (MANUAL) 11 % (3.4-9.0); MYELOCYTES % (MANUAL) 1 % (0-0); NEUTROPHILS % (MANUAL) 80 % (40-74); PLATELET ESTIMATE ADEQUATE; PLATELET MORPHOLOGY COMMENT NORMAL; RBC MORPHOLOGY COMMENT NORMAL
[2020-12-01] MEDS ORDERED: SODIUM BICARBONATE 8.4% INJ 50 ML SYR IV ONE ×2 (07:45→12:30)
[2020-12-01] MEDS ORDERED: INSULIN REGULAR, HUMAN 100 UNIT/1 ML IV ONE ×3 (07:45→17:00)
[2020-12-01] MEDS: ASCORBIC ACID 500 MG TAB PO SCH ×2 (08:16→16:12)
[2020-12-01] MEDS: ZINC SULFATE 50 MG CAP PO SCH (08:16)
[2020-12-01] MEDS: ENOXAPARIN INJ 80 MG/0.8 ML SYR SC SCH (08:16)
[2020-12-01] MEDS: DEXAMETHASONE SOD PHOS 10 MG/1 ML VIAL IV SCH (08:16)
[2020-12-01] MEDS: ROCURONIUM 1250MG/NS 250 250 ML IV PRN (08:18)
[2020-12-01 08:24] LABS: ABG PCO2 92 mmHg (35-45); ABG PH 7.18 (7.35-7.45)
[2020-12-01 08:25] LABS: ABG HCO3 34 mmol/L (22-26); ABG PO2 42 mmHg (80-105); ABG TCO2 37
[2020-12-01] MEDS: PRASUGREL 10 MG TAB PO SCH (09:00)
[2020-12-01] MEDS ORDERED: PHENYLEPHRINE HCL IN 0.9% NACL 250 ML IV ONE (10:05)
[2020-12-01 10:35] LABS: ANION GAP 18.9 mmol/L (8-16); CALCIUM 7.7 mg/dL (8.4-10.2); CREATININE, SERUM 1.15 mg/dL (0.57-1.11)
[2020-12-01 10:42] LABS: POTASSIUM 6.9 mmol/L (3.5-5.1)
[2020-12-01] MEDS ORDERED: SOD POLYSTYRENE SULFONATE SUSP 15 GM/60 ML BTL PO ONE ×3 (11:00→17:00)
[2020-12-01] MEDS ORDERED: DEXTROSE 50% SYRINGE 50 ML IV STA ×2 (12:10→16:50)
[2020-12-01] MEDS ORDERED: FUROSEMIDE INJ 10 MG/ML 2 ML VIAL IV ONE ×2 (12:15→12:45)
[2020-12-01] MEDS: EYE LUBRICANT OPTH OINT 3.5GM TUBE OP SCH (16:12)
[2020-12-01] MEDS ORDERED: SODIUM BICARBONATE 8.4% INJ 50 ML SYR IV STA (16:50)
[2020-12-01] MEDS ORDERED: FUROSEMIDE INJ 10 MG/ML 4 ML VIAL IV ONE (17:00)
[2020-12-01] MEDS: INSULIN GLARGINE 100 UNITS/ML VIAL SQ SCH (21:31)
[2020-12-02] VITALS (25 sets, daily range): BP systolic 101–128; BP diastolic 44–54
[2020-12-02] MEDS: INSULIN LISPRO 100 UNIT/1 ML 3ML VIAL SQ SCH ×2 (00:14→05:39)
[2020-12-02] MEDS: PIPERACILLIN/TAZOBACTAM 3.375 GM in SODIUM CHLORIDE 0.9% 50ML 50 ML IV SCH ×4 (00:18→16:28)
[2020-12-02] MEDS: MIDAZOLAM HCL 5MG/ML 10ML VIAL 100 ML IV PRN ×4 (00:19→15:28)
[2020-12-02] MEDS: ROCURONIUM 1250MG/NS 250 250 ML IV PRN (02:03)
[2020-12-02] MEDS: VASOPRESSIN 60 UNIT in DEXTROSE 5% 50ML 57 ML IV PRN (02:04)
[2020-12-02] MEDS: NOREPINEPHRINE 8 MG/D5W 250 ML 250 ML IV SCH ×3 (03:46→14:15)
[2020-12-02] MEDS: LEVOTHYROXINE SODIUM 75 MCG TAB PO SCH (05:17)
[2020-12-02] MEDS: FENTANYL 2000MCG/NS 250 250 ML IV SCH ×2 (05:19→12:20)
[2020-12-02 06:26] LABS: BASOPHILS % 0.1 % (0.0-1.0); HEMATOCRIT 29.6 % (34.2-44.1); HEMOGLOBIN 8.4 g/dL (12.0-16.0); LYMPHOCYTES # (AUTO) 1.2 (1.0-3.2); LYMPHOCYTES % 4.2 % (18.0-39.1); MEAN CORPUSCULAR HEMOGLOBIN 27.9 pg (28-32); MEAN CORPUSCULAR HGB CONC 28.4 g/dL (31-35); MEAN CORPUSCULAR VOLUME 98.3 fL (81-99); MONOCYTES # (AUTO) 0.7 (0.2-0.8); MONOCYTES % 2.5 % (4.4-11.3); NEUTROPHILS # (AUTO) 24.6 (2.1-6.9); NEUTROPHILS % 84.8 % (38.7-80.0); PLATELET COUNT 151 x10e3/uL (140-360); RED BLOOD COUNT 3.01 x10e6/uL (3.6-5.1)
[2020-12-02 06:57] LABS: ALBUMIN 1.3 g/dL (3.5-5.0); ALBUMIN/GLOBULIN RATIO 0.3 (0.8-2.0); ANION GAP 18.7 mmol/L (8-16); CREATININE, SERUM 1.85 mg/dL (0.57-1.11); POTASSIUM 4.7 mmol/L (3.5-5.1)
[2020-12-02 07:11] LABS: CALCIUM 6.9 mg/dL (8.4-10.2)
[2020-12-02 08:05] LABS: BAND NEUTROPHILS % (MANUAL) 1 %; LYMPHOCYTES % (MANUAL) 5 % (19-48); METAMYELOCYTES % (MANUAL) 2 % (0-0); MONOCYTES % (MANUAL) 2 % (3.4-9.0); MYELOCYTES % (MANUAL) 3 % (0-0); NEUTROPHILS % (MANUAL) 87 % (40-74); NUCLEATED RED BLOOD CELLS 2; PLATELET ESTIMATE ADEQUATE; PLATELET MORPHOLOGY COMMENT FEW GIANT; RBC MORPHOLOGY COMMENT NORMAL
[2020-12-02] MEDS: EYE LUBRICANT OPTH OINT 3.5GM TUBE OP SCH ×2 (08:06→16:28)
[2020-12-02] MEDS: DEXAMETHASONE SOD PHOS 10 MG/1 ML VIAL IV SCH (08:06)
[2020-12-02] MEDS: ZINC SULFATE 50 MG CAP PO SCH (08:06)
[2020-12-02] MEDS: ASCORBIC ACID 500 MG TAB PO SCH ×2 (08:06→16:28)
[2020-12-02] MEDS: PRASUGREL 10 MG TAB PO SCH (08:06)
[2020-12-02 09:12] LABS: ABG HCO3 33 mmol/L (22-26); ABG PCO2 96 mmHg (35-45); ABG PH 7.14 (7.35-7.45); ABG PO2 47 mmHg (80-105); ABG TCO2 35
[2020-12-02] MEDS ORDERED: DEXTROSE 50% SYRINGE 50 ML IV PRN (10:00)
[2020-12-02 10:25] LABS: MAGNESIUM 2.7 MG/DL (1.3-2.1); PHOSPHORUS 9.4 MG/DL (2.3-4.7)
[2020-12-02] MEDS: INSULIN REGULAR, HUMAN 3ML VL 100 UNIT in SODIUM CHLORIDE 0.9% 99 ML IV PRN ×4 (11:29→19:57)
[2020-12-02] MEDS: FUROSEMIDE INJ 10 MG/ML 4 ML VIAL IV SCH ×3 (12:03→20:56)
[2020-12-02 15:24] LABS: ANION GAP 16.6 mmol/L (8-16); CALCIUM 7.1 mg/dL (8.4-10.2); CREATININE, SERUM 2.16 mg/dL (0.57-1.11); MAGNESIUM 2.8 MG/DL (1.3-2.1); PHOSPHORUS 9.5 MG/DL (2.3-4.7); POTASSIUM 4.6 mmol/L (3.5-5.1)
[2020-12-02 19:42] LABS: ANION GAP 16.8 mmol/L (8-16); CALCIUM 7.2 mg/dL (8.4-10.2); CREATININE, SERUM 2.31 mg/dL (0.57-1.11); MAGNESIUM 2.6 MG/DL (1.3-2.1); PHOSPHORUS 9.5 MG/DL (2.3-4.7); POTASSIUM 4.8 mmol/L (3.5-5.1)
[2020-12-02] MEDS ORDERED: HEPARIN SOD/SOD CHLORIDE 1,000 ML ONE (20:51)
[2020-12-03] VITALS (16 sets, daily range): BP systolic 0–141; BP diastolic 0–85
[2020-12-03] MEDS: INSULIN REGULAR, HUMAN 3ML VL 100 UNIT in SODIUM CHLORIDE 0.9% 99 ML IV PRN ×2 (01:52)
[2020-12-03] MEDS: MIDAZOLAM HCL 5MG/ML 10ML VIAL 100 ML IV PRN ×3 (01:53→12:34)
[2020-12-03] MEDS: FENTANYL 2000MCG/NS 250 250 ML IV SCH (02:26)
[2020-12-03] MEDS: VASOPRESSIN 60 UNIT in DEXTROSE 5% 50ML 57 ML IV PRN ×2 (02:48→03:04)
[2020-12-03] MEDS: NOREPINEPHRINE 8 MG/D5W 250 ML 250 ML IV SCH ×4 (03:53→12:34)
[2020-12-03] MEDS: PHENYLEPHRINE 10MG/ML VIAL 40 MG in DEXTROSE 5% 250ML 246 ML IV SCH (04:40)
[2020-12-03] MEDS: PIPERACILLIN/TAZOBACTAM 3.375 GM in SODIUM CHLORIDE 0.9% 50ML 50 ML IV SCH ×4 (05:18→12:33)
[2020-12-03] MEDS: LEVOTHYROXINE SODIUM 75 MCG TAB PO SCH (05:21)
[2020-12-03 06:44] LABS: BASOPHILS % 0.1 % (0.0-1.0); HEMOGLOBIN 8.3 g/dL (12.0-16.0); LYMPHOCYTES # (AUTO) 1.5 (1.0-3.2); MEAN CORPUSCULAR HGB CONC 28.6 g/dL (31-35); MONOCYTES # (AUTO) 1.1 (0.2-0.8); MONOCYTES % 3.7 % (4.4-11.3); NEUTROPHILS # (AUTO) 23.7 (2.1-6.9); NEUTROPHILS % 79.6 % (38.7-80.0); PLATELET COUNT 115 x10e3/uL (140-360); RED BLOOD COUNT 2.96 x10e6/uL (3.6-5.1)
[2020-12-03 07:16] LABS: ALBUMIN 1.3 g/dL (3.5-5.0); ALBUMIN/GLOBULIN RATIO 0.3 (0.8-2.0); ANION GAP 19.8 mmol/L (8-16); CREATININE, SERUM 2.65 mg/dL (0.57-1.11); POTASSIUM 4.8 mmol/L (3.5-5.1)
[2020-12-03 07:43] LABS: MAGNESIUM 2.6 MG/DL (1.3-2.1); PHOSPHORUS 9.2 MG/DL (2.3-4.7)
[2020-12-03] MEDS: DEXAMETHASONE SOD PHOS 10 MG/1 ML VIAL IV SCH (08:14)
[2020-12-03] MEDS: EYE LUBRICANT OPTH OINT 3.5GM TUBE OP SCH (08:14)
[2020-12-03] MEDS: ASCORBIC ACID 500 MG TAB PO SCH (08:14)
[2020-12-03] MEDS: PRASUGREL 10 MG TAB PO SCH (08:14)
[2020-12-03] MEDS: ZINC SULFATE 50 MG CAP PO SCH (08:14)
[2020-12-03 08:21] LABS: ABG HCO3 32 mmol/L (22-26); ABG PCO2 86 mmHg (35-45); ABG PH 7.18 (7.35-7.45); ABG PO2 50 mmHg (80-105)
[2020-12-03 08:22] LABS: ABG TCO2 34
[2020-12-03 09:38] LABS: BAND NEUTROPHILS % (MANUAL) 3 %; HYPOCHROMASIA SLIGHT; LYMPHOCYTES % (MANUAL) 4 % (19-48); METAMYELOCYTES % (MANUAL) 1 % (0-0); MONOCYTES % (MANUAL) 1 % (3.4-9.0); MYELOCYTES % (MANUAL) 6 % (0-0); NEUTROPHILS % (MANUAL) 85 % (40-74); NUCLEATED RED BLOOD CELLS 2; PLATELET ESTIMATE SLIGHTLY DECREASED
[2020-12-03 09:39] LABS: ANISOCYTOSIS SLIGHT
[2020-12-03 09:40] LABS: PLATELET MORPHOLOGY COMMENT FEW GIANT; POLYCHROMASIA FEW; RBC MORPHOLOGY COMMENT ABNORMAL
[2020-12-03 10:55] LABS: ANION GAP 17.4 mmol/L (8-16); CALCIUM 7.1 mg/dL (8.4-10.2); CREATININE, SERUM 2.63 mg/dL (0.57-1.11); MAGNESIUM 2.6 MG/DL (1.3-2.1); PHOSPHORUS 9.3 MG/DL (2.3-4.7); POTASSIUM 4.4 mmol/L (3.5-5.1)
[2020-12-03] MEDS ORDERED: Morphine 2mg Syringe 2 MG/ML SYR IV STA (13:57)
[2020-12-03] MEDS ORDERED: Morphine 2mg Syringe 2 MG/ML SYR ONE (14:13)
[2020-12-03] MEDS ORDERED: LORAZEPAM INJ 2 MG/ML VIAL ONE (14:13)
[2020-12-03] MEDS ORDERED: LORAZEPAM INJ 2 MG/ML VIAL IV ONE (14:30)
[2020-12-03] MEDS ORDERED: DEXTROSE 50% SYRINGE 50 ML IV PRN (16:00)
[2020-12-03 16:41] LABS: FREE T4 (FREE THYROXINE) 0.4 ng/dL (0.8-1.8); THYROID STIMULATING HORMONE 0.114 uIU/mL (0.350-4.940)
[2020-12-03] MEDS ORDERED: INSULIN REGULAR, HUMAN 3ML VL 100 UNIT in SODIUM CHLORIDE 0.45% 100 ML 99 ML IV SCH ×2 (17:30)
[2020-12-03] MEDS ORDERED: INSULIN GLARGINE 100 UNITS/ML VIAL SQ SCH (21:00)
== END 2020-12-03 18:00 | disposition expired | DRG 207 ==
LOC: ER 14:38 → ERHOLD 16:30 → ICU 23:17 → COVIDICU 11-30 14:07
PROVIDERS: ADMIT Internal Medicine; ATTEND Internal Medicine
PROC: 5A0945A Assistance with Respiratory Ventilation, 24-96 Consecutive Hours, High Flow/Velocity Cannula (ICD-10-PCS; 2020-11-15)
PROC: 8E0ZXY6 Isolation (ICD-10-PCS; 2020-11-15)
PROC: XW043E5 Introduction of Remdesivir Anti-infective into Central Vein, Percutaneous Approach, New Technology Group 5 (ICD-10-PCS; 2020-11-16)
PROC: 02HV33Z Insertion of Infusion Device into Superior Vena Cava, Percutaneous Approach (ICD-10-PCS; 2020-11-19)
PROC: 0BH17EZ Insertion of Endotracheal Airway into Trachea, Via Natural or Artificial Opening (ICD-10-PCS; principal; 2020-11-20)
PROC: 5A1955Z Respiratory Ventilation, Greater than 96 Consecutive Hours (ICD-10-PCS; 2020-11-20)
PROC: 0W9930Z Drainage of Right Pleural Cavity with Drainage Device, Percutaneous Approach (ICD-10-PCS; 2020-11-23)
PROC: 3E043XZ Introduction of Vasopressor into Central Vein, Percutaneous Approach (ICD-10-PCS; 2020-11-29)
DX: U07.1 COVID-19 (principal); E11.10 Type 2 diabetes mellitus with ketoacidosis without coma; J12.9 Viral pneumonia, unspecified; J80 Acute respiratory distress syndrome; A41.89 Other specified sepsis; J15.9 Unspecified bacterial pneumonia; R65.21 Severe sepsis with septic shock; N17.0 Acute kidney failure with tubular necrosis; E44.0 Moderate protein-calorie malnutrition; E87.2 Acidosis; J93.12 Secondary spontaneous pneumothorax; E03.9 Hypothyroidism, unspecified; F41.9 Anxiety disorder, unspecified; Z68.39 Body mass index [BMI] 39.0-39.9, adult; Z66 Do not resuscitate; E66.01 Morbid (severe) obesity due to excess calories; J43.9 Emphysema, unspecified; E87.5 Hyperkalemia; Z98.84 Bariatric surgery status; E87.6 Hypokalemia; I46.8 Cardiac arrest due to other underlying condition; Z79.84 Long term (current) use of oral hypoglycemic drugs; I25.10 Atherosclerotic heart disease of native coronary artery without angina pectoris; Z51.5 Encounter for palliative care; K21.9 Gastro-esophageal reflux disease without esophagitis
CPT/HCPCS: 31500; 36415; 36569; 36600; 71045; 71260; 74018; 80048; 80053; 80202; 82550; 82553; 82728; 82805; 82948; 83036; 83735; 84100; 84132; 84134; 84439; 84443; 84478; 84484; 84630; 85025; 85610; 85730; 86140; 87040; 92950; 93005; 94002; 94003; 94660; 96365; 96372; 99251; 99285; J0330; J0456; J0696; J1100; J1650; J1815; J1817; J1940; J2020; J2060; J2185; J2250; J2270; J2370; J2405; J2543; J3370; J7030; J7050; J7799; P9047; Q9967; U0002